=== PATIENT | male | born 1965 | race Caucasian/White ===

== ENCOUNTER → 2020-05-21 09:00 | Outpatient (BNVA) | payer MEDICARE, MEDICAID, SELFPAY | PROVIDERS: PCP Internal Medicine; Visit Provider Urology | DX: N40.1 Benign prostatic hyperplasia with lower urinary tract symptoms (principal); N13.8 Other obstructive and reflux uropathy; R35.0 Frequency of micturition; R35.1 Nocturia; E29.1 Testicular hypofunction; Z79.899 Other long term (current) drug therapy | CPT/HCPCS: 99213 ==

== ENCOUNTER → 2021-03-17 10:30 | Outpatient (BNVA) | payer OTHER, SELFPAY | PROVIDERS: PCP Internal Medicine; Visit Provider Urology | DX: E29.1 Testicular hypofunction (principal); N40.1 Benign prostatic hyperplasia with lower urinary tract symptoms; N13.8 Other obstructive and reflux uropathy | CPT/HCPCS: 51798; 99212 ==

== ENCOUNTER → 2021-09-16 10:04 | Outpatient (BNVA) | payer OTHER, SELFPAY | PROVIDERS: PCP Internal Medicine; Visit Provider Urology | DX: E29.1 Testicular hypofunction (principal); N40.1 Benign prostatic hyperplasia with lower urinary tract symptoms; N13.8 Other obstructive and reflux uropathy | CPT/HCPCS: 51798; 99212 ==

== ENCOUNTER → 2022-03-16 08:22 | Outpatient (BNVA) | payer OTHER, SELFPAY | PROVIDERS: PCP Internal Medicine; Visit Provider Urology | DX: E29.1 Testicular hypofunction (principal); N40.1 Benign prostatic hyperplasia with lower urinary tract symptoms; N13.8 Other obstructive and reflux uropathy | CPT/HCPCS: 99212 ==

== ENCOUNTER → 2022-09-04 14:44 | Outpatient (BNVA) | payer OTHER, SELFPAY | PROVIDERS: PCP Internal Medicine; Visit Provider Surgery | DX: L72.0 Epidermal cyst (principal) | CPT/HCPCS: 99202 ==

== ENCOUNTER → 2022-09-21 08:39 | Outpatient (BNVA) | payer OTHER, SELFPAY | PROVIDERS: PCP Internal Medicine; Referring Provider Internal Medicine; Visit Provider Surgery | CPT/HCPCS: 11403 ==

== ENCOUNTER 2023-03-16 08:27 | Outpatient (AMB) | payer OTHER, SELFPAY ==
--- NOTE | 2023-03-16 08:32 | MHC.OFFVIS ---
Intake Intake Visit Reasons: 1Y PSA(set) Intake Note: Patient is present for Follow Up PSA/PVR Urology Med: Solifenacin, Tamsulosin Antibiotic Allergy: None Blood Thinner: None Pharmacy: [facility] PVR: 0ML Allergies haloperidol [Haldol] Allergy (Unknown, Verified 03/16/23 08:32) n/a tricyclides Allergy (Unknown, Uncoded 03/16/23 08:32) na Medication List - Last Reconciled 03/16/23 by Srinivasa Reyes MD cholecalciferol (vitamin D3) 125 mcg PO DAILY coenzyme Q10 0 mg PO cyanocobalamin (vitamin B-12) 1,000 mcg PO DAILY lisinopril 20 mg PO DAILY metformin 500 mg PO DAILY metformin 1,000 mg PO BID paliperidone ER 9 mg PO BEDTIME solifenacin 10 mg PO DAILY solifenacin (Vesicare) 10 mg PO DAILY 90 days tamsulosin (Flomax) 0.4 mg PO DAILY 90 days HPI HPI Comments History of Present Illness Details Hiram is a pleasant male. He is seen for the following urologic conditions - lower urinary tract symptoms - hypogonadism Followed through [facility]. Continues with testosterone from functional medicine Nocturia 1-2 otherwise happy Reasonable urge control. Suggested to reduce coffee 12 month follow-up Lower urinary tract symptoms Primary symptoms were urgency and nocturia Good response to combination Flomax and VESIcare 5 mg Continues to be effective PSA - 04/01 0.8, 09/03 0.9. 02/01 0.7 Hypogonadism Responded to weight loss Previous prescription for topical testosterone Testim Followed by Endocrinology [facility] Medical History Elevated blood pressure reading Epidermal cyst HTN (hypertension) Incontinence Obesity Thought disorder Social History Alcohol intake: never Patient Tobacco Use Status: Never used Tobacco Review of Systems Const Denies chills and Denies fever(s) Card Reports no additional complaints and Denies syncope Resp Denies cough GI Denies abdominal pain and Denies heartburn Reports as per HPI and Denies change in libido Neuro Denies syncope Psych Denies change in libido Endo Denies change in libido Physical Exam Const General: cooperative, healthy appearing, comfortable and no acute distress Orientation/consciousness: patient oriented x3 HEENT Face and sinus: Yes normal facial exam Mouth: moist mucous membranes Neck Neck: Yes normal visual inspection, Yes full ROM and Yes trachea midline Chest Chest palpation & inspection: normal inspection of the chest Resp Effort & Inspection: normal respiratory effort, able to speak in complete sentences and no respiratory distress GI Inspection: Yes normal to inspection Back/Spine/Pelvis Cervical Spine: normal cervical lordosis Thoracic/Lumbar Spine: thoracic and lumbar spine normal to inspection Skin General skin exam: no rashes or lesions noted Neuro General: patient oriented x3, gait normal, tone normal and moves all extremities Extrem General: Yes normal to inspection and Yes capillary refill normal Office Procedures Post Void Residual Post Residual Void Post Void Residual (PVR): 0 09372-[id number] Void Residual by ultrasound Results AMB Urinalysis, Automated UA Leukoctes 0 Anna/uL Last Edit by KOTA Dhillon on 03/16/23 08:39 UA Nitrite Negative Last Edit by CLARISSA Dhillon on 03/16/23 08:39 UA Urobilinogen 0.2 mg/dL Last Edit by KOTA Dhillon on 03/16/23 08:39 UA Protein 15 mg/dL Last Edit by Ebony Mar [facility] on 03/16/23 08:39 UA pH 5.5 Last Edit by KOTA Dhillon on 03/16/23 08:39 UA Blood 10 Galdino/uL Last Edit by CLARISSA Dhillon on 03/16/23 08:39 UA Specific Krebs 1.030 Last Edit by KOTA Dhillon on 03/16/23 08:39 UA Ketone Positive Last Edit by Ebony Mar Murtaza on 03/16/23 08:39 UA Bilirubin 0 mg/dL Last Edit by KOTA Dhillon on 03/16/23 08:39 UA Glucose 1000 mg/dL Last Edit by KOTA Dhillon on 03/16/23 08:39 Results Reviewed Results Reviewed: Laboratory Last Values Urine pH (Auto) 5.5 03/16/23 08:33 Specific Krebs (Auto) 1.030 03/16/23 08:33 Urine Protein (Auto) 15 mg/dL 03/16/23 08:33 Glucose (UA)(Auto) 1000 mg/dL 03/16/23 08:33 Urine Ketones (Auto) Positive 03/16/23 08:33 Urine Blood (Auto) 10 Galdino/uL 03/16/23 08:33 Urine Nitrite (Auto) Negative 03/16/23 08:33 Urine Bilirubin (Auto) 0 mg/dL 03/16/23 08:33 Urine Urobilinogen (Auto) 0.2 mg/dL 03/16/23 08:33 Leukocyte Esterase (Auto) 0 Anna/uL 03/16/23 08:33 Assessment & Plan Assessment & Plan (1) Hypogonadism male: Code(s): E29.1 - Testicular hypofunction (2) BPH with obstruction/lower urinary tract symptoms: Code(s): N40.1 - Benign prostatic hyperplasia with lower urinary tract symptoms; N13.8 - Other obstructive and reflux uropathy Plan Twelve month follow-up Orders: Orders AMB Urinalysis Automated Today Z13.9 - Encounter for screening, unspecified AMB Post Void Residual by ultrasound Today N13.8 - Other obstructive and reflux uropathy, N40.1 - Benign prostatic hyperplasia with lower urinary tract symptoms Medications: Refilled solifenacin (Vesicare) 10 mg PO DAILY 90 tabs 3RF 90 days E29.1 - Testicular hypofunction tamsulosin (Flomax) 0.4 mg PO DAILY 90 caps 3RF 90 days E29.1 - Testicular hypofunction Patient Instructions: Imaging studies, laboratory and physical exam results were discussed and reviewed in detail. No major barriers to patient understanding were identified. An opportunity to ask questions regarding the treatment plan was provided. All questions were answered. The patient expressed understanding and agreement with the above treatment plan. The patient is aware they should contact our office by phone for worsening of their current condition or the appearance of new urologic symptoms. Compliance is encouraged with any medications and followup testing that is ordered. It is a privilege to participate in the urologic care of your patient. If you have any questions or concerns regarding treatment for the above conditions, or other urologic issues, please do not hesitate to contact me. The office telephone contact is [phone]. This note is constructed using voice recognition software. While every effort has been made to ensure accuracy litigation manager errors may have been included. Yours sincerely, Dr Srinivasa Reyes MD, [facility] - Urology Providers of Expert, Compassionate Care for the Genitourinary System Coding Level of Care Code Est Pt Level 4 (59430) Diagnoses Hypogonadism male E29.1 BPH with obstruction/lower urinary tract symptoms N40.1; N13.8 CPT Codes Post Residual Void - PVR CPT Code: 44395-Qsmv Void Residual by ultrasound ([id number])
== END 2023-03-16 09:01 | disposition home or self-care (01) ==
PROVIDERS: Visit Provider Urology
DX: E29.1 Testicular hypofunction (principal); N40.1 Benign prostatic hyperplasia with lower urinary tract symptoms; N13.8 Other obstructive and reflux uropathy
CPT/HCPCS: 99214

== ENCOUNTER → 2023-03-16 08:27 | Outpatient (BNVA) | payer OTHER, SELFPAY | PROVIDERS: Visit Provider Urology | DX: N40.1 Benign prostatic hyperplasia with lower urinary tract symptoms (principal); N13.8 Other obstructive and reflux uropathy; E29.1 Testicular hypofunction | CPT/HCPCS: 51798; 99212 ==

== ENCOUNTER 2023-07-02 08:07 | Outpatient (AMB) | payer OTHER, SELFPAY ==
[2023-07-02 08:19] VITALS: BP 132/90; PULSE 70; TEMP 36.7; O2SAT 97; BMI 43.0
--- NOTE | 2023-07-02 08:19 | AM.OFFWIN_ITS ---
Intake Vital Signs 3 07/02/23 08:19 Height 6 ft Weight 317 lb BMI 43.0 BP 132/90 H Blood Pressure Location Rt brachial Position Sitting Pulse 70 Pulse Source Pulse Oximeter Temp 98.0 F Temp Source Temporal Artery Scan Pulse Oximetry (%) 97 Intake Visit Reasons: EP hernia Intake Note: pt is here for c/o suspect abd hernia Patient Tobacco Use Status: Never used Tobacco Allergies haloperidol [Haldol] Allergy (Unknown, Verified 07/02/23 09:17) n/a tricyclides Allergy (Unknown, Uncoded 07/02/23 09:17) na Do you need a note to return to daycare/school/sports/work: Yes HPI EP hernia 2 HPI0 Details 58-year-old male patient presents today with a 3 month history question abdominal hernia his right lower abdomen. He reports this has been present for about 3 months, and he noticed it after he started going to the gym. Reports it is not usually painful however he does feel pressure with lifting and straining/bearing down. Denies any nausea, vomiting, diarrhea or abdominal pain. Denies fever. [facility] Medical History Epidermal cyst Thought disorder Obesity Incontinence HTN (hypertension) Elevated blood pressure reading Social History Alcohol intake: never Patient Tobacco Use Status: Never used Tobacco Review of Systems Const All systems reviewed & are unremarkable except as noted in HPI and below Physical Exam Vital Signs: Last Vital Signs Temp 98.0 F 07/02/23 08:19 Pulse 70 07/02/23 08:19 BP 132/90 H 07/02/23 08:19 Pulse Ox 97 07/02/23 08:19 BMI result Body Mass Index 43.0 Const General: cooperative and no acute distress Nutritional Appearance: obese Resp Effort & Inspection: normal respiratory effort and able to speak in complete sentences Auscultation: clear to auscultation bilaterally Cardio Jugular venous distension: no JVD Palpation: normal PMI Rate: regular rate Rhythm: regular rhythm GI Inspection: Yes obesity Palpation (GI): Hernia present umbilical (left) Auscultation: normal bowel sounds Abdomen image: 2 1. hernia Neuro General: gait normal Extrem General: Yes capillary refill normal and Yes no clubbing, cyanosis or edema Psych Appearance: grossly normal Mental Status: mental status grossly normal Speech and movement: Normal speech and movement present Affect: Other affect and mood findings present (flat affect, poor eye contact) Assessment & Plan Assessment & Plan (1) Hernia, umbilical: Code(s): K42.9 - Umbilical hernia without obstruction or gangrene Qualifiers: Obstruction and gangrene presence: without obstruction or gangrene Qualified Code(s): K42.9 - Umbilical hernia without obstruction or gangrene Plan: Will refer to general surgery at [facility] per patient request and per recommendation from Dr. Cabello. Advised to return to clinic or PCP if symptoms worsen or new pain/fever develop. He verbalizes understanding and agrees to plan. Orders: Referrals 2 General Surgery Referral K42.9 - Umbilical hernia without obstruction or gangrene Coding Level of Care Code Est Pt Level 3 (83061) Diagnoses Umbilical hernia without obstruction and without gangrene K42.9 Obstruction and gangrene presence: without obstruction or gangrene
== END 2023-07-02 09:05 | disposition home or self-care (01) ==
PROVIDERS: PCP Internal Medicine; Visit Provider Nurse Practitioner Family
DX: K42.9 Umbilical hernia without obstruction or gangrene (principal)
CPT/HCPCS: 99213

== ENCOUNTER 2023-07-02 09:15 | Outpatient (AMB) | payer OTHER, SELFPAY ==
[2023-07-02 09:16] VITALS: BP 162/90; PULSE 106; O2SAT 97; BMI 43.0
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
== END 2023-07-02 09:38 | disposition home or self-care (01) ==
LOC: HO.HMGWI 09:15
PROVIDERS: PCP Internal Medicine
DX: M54.2 Cervicalgia (principal)
CPT/HCPCS: 99214

== ENCOUNTER 2023-07-02 10:07 | Emergency (ER) | payer OTHER, SELFPAY ==
[2023-07-02] VITALS (10 sets, daily range): BP systolic 133–179; BP diastolic 78–110; PULSE 97–125; RESP 14–18; TEMP 36.8–37.1; O2SAT 94–98; BMI 42.7
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
--- NOTE | 2023-07-02 11:27 | PC.NURSE ---
pt to CT at this time.
--- NOTE | 2023-07-02 11:40 | PC.NURSE ---
tech bedside performing orthos/obtaining lab work.
--- NOTE | 2023-07-02 11:43 | ECG_ITS ---
Test Reason : TACHYCARDIA Blood Pressure : / mmHG Vent. Rate : 105 BPM Atrial Rate : 105 BPM P-R Int : 230 ms QRS Dur : 108 ms QT Int : 340 ms P-R-T Axes : 032 -50 003 degrees QTc Int : 449 ms Sinus tachycardia with 1st degree A-V block Low voltage QRS Incomplete right bundle branch block Left anterior fascicular block Abnormal ECG No previous ECGs available Referred By: Jennifer Cyr Electronically Signed By:BAHMAN ANDERSON MD
[2023-07-02 11:49] LABS: MANUAL DIFF FLAG NO
[2023-07-02 11:53] LABS: Basophils Percent Auto 0.2 % (0-2); Eosinophils Percent Auto 0.1 % (0-4); Hematocrit 44.2 % (42.0-52.0); Hemoglobin 14.7 g/dl (14.0-18.0); Imm Gran Abs Auto 0.06 X10*3/uL (0.00-0.03); Imm Gran Pct Auto 0.5 % (0.0-0.4); Lymphocytes Absolute Auto 0.8 X10*3/uL (1.2-4.9); Lymphocytes Percent Auto 6.7 % (20-40); Mean Corpuscular HGB Conc 33.3 g/dl (31.0-36.0); Mean Corpuscular Hemoglobin 29.8 pg (27.0-33.0); Mean Corpuscular Volume 89.5 fL (80.0-98.0); Mean Platelet Volume 9.8 fL (9.4-12.4); Monocytes Absolute Auto 0.4 X10*3/uL (0.1-1.2); Monocytes Percent Auto 3.1 % (2-11); Neutrophils Absolute Auto 10.6 x10*3/uL (2.0-8.3); Neutrophils Percent Auto 89.4 % (45-73); Platelet Count 255 X10*3/uL (160-400); Red Blood Count 4.94 X10*6/uL (4.60-5.80); Red Cell Distribution Width 13.8 % (11.0-16.0); White Blood Count 11.9 X10*3/uL (4.8-10.8)
[2023-07-02 12:03] LABS: Prothrombin Time 11.8 SEC (11.1-13.3)
[2023-07-02 12:07] LABS: Alanine Aminotransferase 19 U/L (0-40); Alkaline Phosphatase 96 U/L (39-117); Anion Gap 11 (12-20); Aspartate Amino Transferase 16 U/L (5-37); Bilirubin Direct 0.2 mg/dL (0.0-0.5); Bilirubin Total 0.3 mg/dL (0.0-1.0); Blood Urea Nitrogen 10 mg/dL (9-16); Calcium 9.6 mg/dL (8.4-10.2); Carbon Dioxide 28 mmol/L (22-29); Chloride 105 mmol/L (96-108); Estimated Glomerular Filt Rate > 60; Glucose Random 207 mg/dL (60-115); Potassium 4.2 mmol/L (3.3-5.1); Sodium 140 mmol/L (135-145); Total Protein 7.2 g/dL (6.5-8.0)
[2023-07-02 12:13] LABS: Troponin-I High Sensitivity < 2.7 ng/L (<3.5-35.0)
[2023-07-02] MEDS: 0.9 % Sodium Chloride 1,000 ML 999 ML IV (14:03)
--- NOTE | 2023-07-02 14:07 | PC.NURSE ---
20gIV placed in left AC w/o difficulty - IV fluids administered per provider order. repeat trop/urine obtained/sent to lab. respirations remain even and unlabored. call echeverria placed within reach.
[2023-07-02 14:11] LABS: Appearance Urine Clear; Color Urine Yellow; Glucose Urine UA 250 mg/dL (Negative); Leukocyte Esterase Urine Negative (Negative); Nitrite Urine Negative (Negative); PH 7.5 (5.0-9.0); Specific Gravity - Urine 1.015 (1.005-1.025); Urine Blood Negative (Negative); Urine Ketones Negative (Negative); Urine Protein Negative (Neg-Trace)
[2023-07-02 14:34] LABS: Troponin-I High Sensitivity < 2.7 ng/L (<3.5-35.0)
--- NOTE | 2023-07-02 14:47 | PC.NURSE ---
vss and up to date at this time. pt verbalizing no change in neck pain level at this time. pt awaiting IV fluids to be administered so orthos can be performed. resting comfortably in no apparent distress. call echeverria placed within reach.
== END 2023-07-02 16:38 | disposition home or self-care (01) ==
PROVIDERS: Physician Assistant; Emergency Provider Emergency Medicine; PCP Internal Medicine
DX: S09.90XA Unspecified injury of head, initial encounter (principal); S00.83XA Contusion of other part of head, initial encounter; V47.0XXA Car driver injured in collision with fixed or stationary object in nontraffic accident, initial encounter; M54.2 Cervicalgia; I10 Essential (primary) hypertension; R00.0 Tachycardia, unspecified; I44.0 Atrioventricular block, first degree; K43.9 Ventral hernia without obstruction or gangrene; D72.829 Elevated white blood cell count, unspecified; Y93.89 Activity, other specified; Y92.481 Parking lot as the place of occurrence of the external cause; Y99.9 Unspecified external cause status; Z79.899 Other long term (current) drug therapy
CPT/HCPCS: 36415; 70450; 72125; 80048; 80076; 81003; 83735; 84484; 85025; 85610; 93005; 96360; 99284; 99285

== ENCOUNTER 2024-02-25 15:04 | Outpatient (AMB) | payer OTHER, SELFPAY ==
--- NOTE | 2024-02-25 15:36 | A.OFFVIS_ITS ---
Vital Signs 02/25/24 15:42 Weight 336 lb Intake Visit Reasons: abdominal hernia Intake Note: This patient presents for an assessment for an abdominal hernia. Patient c/o; reports no complaints. Classified Ad Taker Required: No Accompanied by: Self / Same As Patient Allergies haloperidol [Haldol] Allergy (Unknown, Verified 02/25/24 15:42) n/a tricyclides Allergy (Unknown, Uncoded 02/25/24 15:42) na Medication List - Last Reconciled 02/25/24 by Eduardo Cheng MD acetaminophen (Tylenol Extra Strength) 500 mg PO Q6H PRN cholecalciferol (vitamin D3) 125 mcg PO DAILY coenzyme Q10 0 mg PO cyanocobalamin (vitamin B-12) 1,000 mcg PO DAILY lidocaine 5% (Lidoderm) 1 patch topical DAILY PRN MDD remove after 12 hours lisinopril 20 mg PO DAILY metformin 500 mg PO DAILY naproxen 500 mg PO BID PRN 10 days paliperidone ER 9 mg PO BEDTIME solifenacin (Vesicare) 10 mg PO DAILY 90 days tamsulosin (Flomax) 0.4 mg PO DAILY 90 days HPI HPI abdominal hernia: Details: 58-year-old male referred for a paraumbilical hernia. He said he is noticed this mass on his abdominal wall for more than 5 years. He says that this does not cause any pain. He denies any GI complaints. He does not think that this is reducible. He has a history of morbid obesity, schizophrenia, BPH, diabetes and hypertension. He does not really offer much with regards to details of his history. [facility] Medical History (Updated 02/25/24 @ 15:50 by Eduardo Cheng MD) Abdominal wall hernia Epidermal cyst Thought disorder Obesity Incontinence HTN (hypertension) Elevated blood pressure reading Social History Alcohol intake: never Patient Tobacco Use Status: Never used Tobacco Review of Systems Const Denies chills and Denies fever(s) Card Denies chest pain, Denies dyspnea and Denies dyspnea on exertion Resp Denies cough, Denies dyspnea and Denies dyspnea on exertion GI Denies hematochezia and Denies change in bowel habits Denies hematuria and Denies difficulty urinating Musc Denies back pain and Denies limited range of motion Neuro Denies focal weakness and Denies convulsions Psych Denies depression and Denies mood swings Physical Exam Const Other: Morbidly obese General: comfortable and no acute distress Orientation/consciousness: patient oriented x3 Neck Neck: Yes no lymphadenopathy Resp Auscultation: clear to auscultation bilaterally Cardio Rhythm: regular rhythm GI Other: Large hernia on the periumbilical area a little to the left and inferiorly, measuring about 12 cm in diameter, not reducible, not tender Palpation (GI): Soft to palpation, nontender and no guarding Neuro General: patient oriented x3 Assessment & Plan Assessment & Plan (1) Abdominal wall hernia: Code(s): K43.9 - Ventral hernia without obstruction or gangrene Category: Medical Plan: He has a large abdominal were hernia as described above he denies symptoms at this time. He says he does not have any pain or discomfort. I am going to order for a CAT scan for this to define this hernia. I will review the CT scan and seemed the office to discuss options with regards to possible repair. He seems to understand the plan well. Coding Level of Care Code Est Pt Level 3 (02465) Diagnoses Abdominal wall hernia K43.9
== END 2024-02-25 15:53 | disposition home or self-care (01) ==
PROVIDERS: PCP Internal Medicine; Referring Provider Internal Medicine; Visit Provider Surgery
DX: K43.9 Ventral hernia without obstruction or gangrene (principal)
CPT/HCPCS: 99213

== ENCOUNTER → 2024-02-25 15:04 | Outpatient (BNVA) | payer OTHER, SELFPAY | PROVIDERS: PCP Internal Medicine; Referring Provider Internal Medicine; Visit Provider Surgery | DX: K43.9 Ventral hernia without obstruction or gangrene (principal) | CPT/HCPCS: 99212 ==

== ENCOUNTER 2024-04-11 12:44 | Outpatient (AMB) | payer OTHER, SELFPAY ==
--- NOTE | 2024-04-11 13:17 | MHC.OFFVIS ---
Intake Visit Reasons: 1y follow up Intake Note: Patient is Present for 1 year PVR Follow up Urology Med: Tamsulosin, Vesicare Antibiotic Allergy: None Blood Thinner:None Last PVR: 0ml Todays PVR:0ML Final Assembly And Packing Supervisor Required: No Accompanied by: Self / Same As Patient Allergies haloperidol [Haldol] Allergy (Unknown, Verified 04/11/24 13:21) n/a tricyclides Allergy (Unknown, Uncoded 04/11/24 13:21) na Medication List - Last Reconciled 04/11/24 by Srinivasa Reyes MD acetaminophen (Tylenol Extra Strength) 500 mg PO Q6H PRN cholecalciferol (vitamin D3) 125 mcg PO DAILY coenzyme Q10 0 mg PO cyanocobalamin (vitamin B-12) 1,000 mcg PO DAILY lidocaine 5% (Lidoderm) 1 patch topical DAILY PRN MDD remove after 12 hours lisinopril 20 mg PO DAILY metformin 500 mg PO DAILY metformin 1,000 mg PO DAILY naproxen 500 mg PO BID PRN 10 days paliperidone ER 9 mg PO BEDTIME solifenacin (Vesicare) 10 mg PO DAILY 90 days tamsulosin (Flomax) 0.4 mg PO DAILY 90 days HPI Comments Details: Hiram is a pleasant male. He is seen for the following urologic conditions - lower urinary tract symptoms - hypogonadism Followed through [facility]. Continue with combination Traore Latif and Flomax Continues with testosterone from functional medicine Nocturia 1-2 otherwise happy Reasonable urge control. Medication refill provided Six-month follow-up nurse-practitioner PVR Lower urinary tract symptoms Primary symptoms were urgency and nocturia Good response to combination Flomax and VESIcare 5 mg Continues to be effective PSA - 04/01 0.8, 09/03 0.9. 02/01 0.7 Hypogonadism Responded to weight loss Previous prescription for topical testosterone Testim Followed by Endocrinology [facility] Medical History Abdominal wall hernia Epidermal cyst Thought disorder Obesity Incontinence HTN (hypertension) Elevated blood pressure reading Social History Alcohol intake: never Patient Tobacco Use Status: Never used Tobacco Review of Systems Const Denies chills and Denies fever(s) Card Reports no additional complaints and Denies syncope Resp Denies cough GI Denies abdominal pain and Denies heartburn Reports as per HPI and Denies change in libido Neuro Denies syncope Psych Denies change in libido Endo Denies change in libido Physical Exam Const General: cooperative, healthy appearing, comfortable and no acute distress Orientation/consciousness: patient oriented x3 HEENT Face and sinus: Yes normal facial exam Mouth: moist mucous membranes Neck Neck: Yes normal visual inspection, Yes full ROM and Yes trachea midline Chest Chest palpation & inspection: normal inspection of the chest Resp Effort & Inspection: normal respiratory effort, able to speak in complete sentences and no respiratory distress GI Inspection: Yes normal to inspection Back/Spine/Pelvis Cervical Spine: normal cervical lordosis Thoracic/Lumbar Spine: thoracic and lumbar spine normal to inspection Skin General skin exam: no rashes or lesions noted Neuro General: patient oriented x3, gait normal, tone normal and moves all extremities Extrem General: Yes normal to inspection and Yes capillary refill normal Office Procedures Post Void Residual Post Residual Void Post Void Residual (PVR): 0 [id number]-[id number] Void Residual by ultrasound Assessment & Plan Assessment & Plan (1) Hypogonadism male: Code(s): E29.1 - Testicular hypofunction Category: Medical (2) BPH with obstruction/lower urinary tract symptoms: Code(s): N40.1 - Benign prostatic hyperplasia with lower urinary tract symptoms; N13.8 - Other obstructive and reflux uropathy Category: Medical Plan Continue medication Orders: Orders AMB Post Void Residual by ultrasound Today N13.8 - Other obstructive and reflux uropathy, N40.1 - Benign prostatic hyperplasia with lower urinary tract symptoms Medications: Refilled tamsulosin (Flomax) 0.4 mg PO DAILY 90 days 90 caps 3RF E29.1 - Testicular hypofunction solifenacin (Vesicare) 10 mg PO DAILY 90 days 90 tabs 3RF E29.1 - Testicular hypofunction Patient Instructions: Imaging studies, laboratory and physical exam results were discussed and reviewed in detail. No major barriers to patient understanding were identified. An opportunity to ask questions regarding the treatment plan was provided. All questions were answered. The patient expressed understanding and agreement with the above treatment plan. The patient is aware they should contact our office by phone for worsening of their current condition or the appearance of new urologic symptoms. Compliance is encouraged with any medications and followup testing that is ordered. It is a privilege to participate in the urologic care of your patient. If you have any questions or concerns regarding treatment for the above conditions, or other urologic issues, please do not hesitate to contact me. The office telephone contact is [phone]. This note is constructed using voice recognition software. While every effort has been made to ensure accuracy medical assembly errors may have been included. Yours sincerely, Dr Srinivasa Reyes MD, [facility] - Urology Providers of Expert, Compassionate Care for the Genitourinary System Coding Level of Care Code Est Pt Level 4 (76537) Diagnoses Hypogonadism male E29.1 BPH with obstruction/lower urinary tract symptoms N40.1; N13.8 CPT Codes Post Residual Void - PVR CPT Code: 03758-[id number] Void Residual by ultrasound ([id number])
== END 2024-04-11 13:38 | disposition home or self-care (01) ==
PROVIDERS: PCP Internal Medicine; Visit Provider Urology
DX: E29.1 Testicular hypofunction (principal); N40.1 Benign prostatic hyperplasia with lower urinary tract symptoms; N13.8 Other obstructive and reflux uropathy
CPT/HCPCS: 99214

== ENCOUNTER → 2024-04-11 12:44 | Outpatient (BNVA) | payer OTHER, SELFPAY | PROVIDERS: PCP Internal Medicine; Visit Provider Urology | DX: E29.1 Testicular hypofunction (principal); N40.1 Benign prostatic hyperplasia with lower urinary tract symptoms; N13.8 Other obstructive and reflux uropathy; Z79.899 Other long term (current) drug therapy | CPT/HCPCS: 51798; 99212 ==

== ENCOUNTER 2024-08-26 09:46 | Outpatient (AMB) | payer OTHER, SELFPAY ==
--- NOTE | 2024-08-26 09:51 | MHC.PC.OV ---
Vital Signs 08/26/24 09:57 Height 6 ft 1 in Weight 324 lb BMI 42.7 BP 162/100 H Blood Pressure Location Rt brachial Pulse 88 Pulse Source Pulse Oximeter Pulse Oximetry (%) 99 Intake Visit Reasons: physical Intake Note: just for a physical today Allergies haloperidol [Haldol] Allergy (Unknown, Verified 08/26/24 09:56) n/a tricyclides Allergy (Unknown, Uncoded 04/11/24 13:21) na HPI physical HPI Details 59-year-old male presents to the office for an annual physical. In addition he has several medical conditions that he would like to discuss. Patient has history of diabetes and is taking metformin. Does not recall when his last blood work or A1c was done. Lives alone and does not have a healthy diet. Does not check his blood sugars at home. Patient drives a car but has to take medications under supervision. He drives at night with no difficulty. Patient has history of schizoaffective disorder. He sees a psychiatrist at [facility] who has him currently on Invega. Reports no auditory or visual hallucinations. Patient also has bladder issues for which he sees a urologist. Compliant with the medications. [facility] Medical History (Updated 08/26/24 @ 10:18 by Wojciech Cabello MD) Morbid obesity with BMI of 40.0-44.9, adult Diabetes mellitus Abdominal wall hernia Epidermal cyst Thought disorder Incontinence HTN (hypertension) Elevated blood pressure reading Social History Alcohol intake: never Patient Tobacco Use Status: Never used Tobacco Physical exam (Primary Care) Vital Signs: Last Vital Signs Pulse 88 08/26/24 09:57 BP 162/100 H 08/26/24 09:57 Pulse Ox 99 08/26/24 09:57 Care Plan Goal for BP management: Blood pressure is elevated. Encouraged to be compliant with medications. BMI result Body Mass Index 0.3 BMI Assessment/Plan discussion: High (One pound per week weight loss suggested) BMI High, discussed plan: lifestyle, weight reduction, dietary and physical activity Tobacco/Smoking Status: Tobacco use Status Patient Tobacco Use Status Never used Tobacco 08/26/24 09:53 Const General: cooperative and healthy appearing Nutritional Appearance: well nourished Orientation/consciousness: patient oriented x3 Limitations: no limitations HENMT Head: Yes normal to inspection Eyes General: appearance normal, both eyes and all related structures Neck Neck: Yes normal visual inspection Chest Chest palpation & inspection: normal palpation of entire chest wall Resp Effort & Inspection: normal respiratory effort Neuro General: patient oriented x3 Coding Level of Care Code New Pt Level 4 (49169) New Pt Prev Care 40-64y(88144) Diagnoses BPH with obstruction/lower urinary tract symptoms N40.1; N13.8 Thought disorder R41.89 HTN (hypertension) I10 Diabetes mellitus E11.9 Morbid obesity with BMI of 40.0-44.9, adult E66.01; Z68.41 Annual physical exam Z00.00 Assessment & Plan Assessment & Plan (1) BPH with obstruction/lower urinary tract symptoms: Code(s): N40.1 - Benign prostatic hyperplasia with lower urinary tract symptoms; N13.8 - Other obstructive and reflux uropathy Category: Medical Plan: Condition is stable. Continue current medications. PSA has been ordered. (2) Thought disorder: Code(s): R41.89 - Other symptoms and signs involving cognitive functions and awareness Category: Medical Plan: Patient has a schizoaffective disorder under moderate control. Denies any recent hallucinations. Continue Invega at same dosage. (3) HTN (hypertension): Code(s): I10 - Essential (primary) hypertension Category: Medical Plan: BP is elevated. Not clear if he was compliant with medications. (4) Diabetes mellitus: Code(s): E11.9 - Type 2 diabetes mellitus without complications Category: Medical Plan: Continue Metformin. A1c ordered. Encouraged patient to get blood work done. (5) Morbid obesity with BMI of 40.0-44.9, adult: Code(s): E66.01 - Morbid (severe) obesity due to excess calories; Z68.41 - Body mass index [BMI] 40.0-44.9, adult Category: Medical Plan: Counselling on the importance of diet and exercise done. (6) Annual physical exam: Code(s): Z00.00 - Encounter for general adult medical examination without abnormal findings Plan: Will check his last screening colonoscopy. Orders: Orders Hemoglobin A1c Today E11.9 - Type 2 diabetes mellitus without complications Basic Metabolic Panel Today E11.9 - Type 2 diabetes mellitus without complications Complete Blood Count no Diff Today E11.9 - Type 2 diabetes mellitus without complications Thyroid Stimulating Hormone Today E11.9 - Type 2 diabetes mellitus without complications UA and rflx microscopic Today E11.9 - Type 2 diabetes mellitus without complications Lipid Panel Today E11.9 - Type 2 diabetes mellitus without complications Liver Panel Today E11.9 - Type 2 diabetes mellitus without complications Prostate Specific Antigen Scr Today E11.9 - Type 2 diabetes mellitus without complications Microalbumin, Random (w Creat) Today E11.9 - Type 2 diabetes mellitus without complications
[2024-08-26 09:57] VITALS: BP 162/100; PULSE 88; O2SAT 99; BMI 42.7
== END 2024-08-26 11:34 | disposition home or self-care (01) ==
LOC: HO.HMCSH 09:46
PROVIDERS: PCP Internal Medicine; Visit Provider Internal Medicine
DX: Z00.00 Encounter for general adult medical examination without abnormal findings (principal); E11.9 Type 2 diabetes mellitus without complications; E66.01 Morbid (severe) obesity due to excess calories; Z68.41 Body mass index [BMI] 40.0-44.9, adult; N40.1 Benign prostatic hyperplasia with lower urinary tract symptoms; N13.8 Other obstructive and reflux uropathy; R41.89 Other symptoms and signs involving cognitive functions and awareness; I10 Essential (primary) hypertension

== ENCOUNTER → 2024-08-26 09:46 | Outpatient (BNVA) | payer OTHER, SELFPAY | PROVIDERS: PCP Internal Medicine; Visit Provider Internal Medicine | DX: Z00.00 Encounter for general adult medical examination without abnormal findings (principal); E11.9 Type 2 diabetes mellitus without complications; N40.1 Benign prostatic hyperplasia with lower urinary tract symptoms; N13.8 Other obstructive and reflux uropathy; R41.89 Other symptoms and signs involving cognitive functions and awareness; I10 Essential (primary) hypertension; E66.01 Morbid (severe) obesity due to excess calories; Z68.41 Body mass index [BMI] 40.0-44.9, adult; F25.9 Schizoaffective disorder, unspecified | CPT/HCPCS: 99202; 99386 ==

== ENCOUNTER 2024-10-30 07:32 | Outpatient (AMB) | payer OTHER, SELFPAY ==
--- OUTSIDE RECORDS SUMMARY | 2024-10-30 07:34 | XMS_ITS | Clinical Summary ---
Author Organization [facility] Address [address] [place] [id number] Care Team Providers Care Drywall Professional Name Role Phone Bryan Sanabria MD Primary Care Provider Unavailab le Allergies Active Allergy Reactions Criticality Noted Date Comments Haloperidol Other (See Comments) 04/09/2018 FATIGUE Medications Medication Sig Dispensed Refills Start Date End Date Status solifenacin (VESICARE) 10 MG tablet Take 1 tablet (10 mg total) by mouth daily. 0 Active tamsulosin (FLOMAX) 0.4 MG CAPS Take 1 capsule (0.4 mg total) by mouth daily. 0 Active Coenzyme Q10 (CoQ-10) 100 MG CAPS Take by mouth. 0 Active metFORMIN (GLUCOPHAGE) tablet 1000 mg Take 1 tablet (1,000 mg total) by mouth 2 (two) times a day with meals. 0 Active paliperidone (INVEGA) 9 MG 24 hr tablet Take 1 tablet (9 mg total) by mouth every morning. 0 Active lisinopril (PRINIVIL,ZESTRIL) tablet 20 mg Take 1 tablet (20 mg total) by mouth daily. 0 Active vitamin B-12 (CYANOCOBALAMIN) tablet 1000 mcg Take 1 tablet (1,000 mcg total) by mouth daily. 0 Active vitamin D3 (CHOLECALCIFEROL) 125 MCG (5000 UT) capsule Take 1 capsule (125 mcg total) by mouth daily. 0 Active Active Problems No known active problems Social History Tobacco Use Types Packs/Day Years Used Date Smoking Tobacco: Never Assessed Sex and Gender Information Value Date Recorded Sex Assigned at Not on file Gender Identity Not on file Sexual Orientation Not on file Job Start Date Occupation Industry Not on file Not on file Not on file Last Filed Vital Signs Vital Sign Reading Time Taken Comments Blood Pressure 157/70 10/18/2022 11:34 AM EST Pulse 78 10/18/2022 11:34 AM EST Temperature 36.9 ??C (98.5 ??F) 10/18/2022 11:[address] Respiratory Rate - - Oxygen Saturation 99% 10/18/2022 11:34 AM EST Inhaled Oxygen Concentration - - Weight 147.9 kg (326 lb) 10/18/2022 11:34 AM EST Height 185.4 cm (6' 1 ) 10/18/2022 11:34 AM EST Body Mass Index 43.01 10/18/2022 11:34 AM EST Plan of Treatment Health Maintenance Due Date Last Done Comments Hepatitis B Vaccines (1 of 3 - 3-dose series) 1965 Hepatitis C Screening 1965 COVID-19 Vaccine (#1) 1965 Depression Screening 1977 Preventative Health Evaluation 1983 Colon Cancer Screening (Colonoscopy) 2010 Shingrix-Zoster Vaccine (1 of 2) 2015 Influenza Vaccine (#1) 2024 2, 05/18/2021, 2020, Additional history exists DTap / Tdap / Td (2 - Td or Tdap) 07/09/2025 07/09/2015 Pneumococcal Vaccine Aged Out No long er eligible based on patient's age to complete this topic RSV Ped < 20 months Aged Out No longe r eligible based on patient's age to complete this topic Care Teams Drywall Professional Relationship Specialty Start Date End Date Bryan Sanabria MD PCP - General Internal Medicine 05/24/22
--- OUTSIDE RECORDS SUMMARY | 2024-10-30 07:34 | XMS_ITS | Encounter Summary ---
Author Organization [facility] Address [address] [place] [address] Care Team Providers Care Assembler Fishing Floats Name Role Phone Bryan Sanabria MD Primary Care Provider Encounter Details Date Type Department Care Team (Late st Contact Info) Description 10/29/2024 Telephone Internal Medicine - [place] [address] [phone] Bryan Sanabria MD [address] [id number] Social History Tobacco Use Types Packs/Day Years Used Date Smoking Tobacco: Never Assessed Sex and Gender Information Value Date Recorded Sex Assigned at Not on file Legal Sex Male 2:13 AM EST Gender Identity Not on file Sexual Orientation Not on file documented as of this encounter Progress Notes * Jennifer Carranza - 10/29/2024 4:25 PM EDT Please resend [facility] to [facility] documented in this encounter Plan of Treatment Upcoming Encounters Date Type Department Care Team (Late st Contact Info) Description 12/22/2024 8:15 AM EDT Office Visit Internal Medicine [facility] [address] [phone] Bryan Sanabria MD [address] [address] documented as of this encounter Visit Diagnoses Not on filedocumented in this encounter Care Teams Assembler Fishing Floats Relationship Specialty Start Date End Date Bryan Sanabria MD PCP - General Internal Medicine 01/14/19 documented as of this encounter
--- OUTSIDE RECORDS SUMMARY | 2024-10-30 07:34 | XMS_ITS | Data Portability ---
Author Organization [employer] Address [address] [place] [phone] Care Team Providers Care Needle Loom Operator Helper Name Role Phone [facility] Referring Provider [phone] Assessment Encounter Date Assessment Date Assessment LastModified by Organization Details LastModified Time 08/30/2022 08/30/2022 57 y.o. c/o a lump on his L scapular region that he first noticed as a tenderness starting last Thurs or Fri. It is approx the size of a quarter and does not seem to have grown in size since onset Area on L scapula with area of firmness and some minimal surrounding redness. No obvious fluctuance Area consistent with sebaceous cyst with possible signs of early infection. Less likely abscess Discussed need for PCP or urgent care follow up for Incision and drainage. We will give 500mg Keflex and prescribe keflex to treat cellulitis [email or web address] Not available 08/30/2022 21:06:26 Plan of Treatment Reminders Order Date Submit Date Provider Last Modified By Organization Details Last Modified Time Details Appointments None recorded. Lab None recorded. Referral None recorded. Procedures None recorded. Surgeries None recorded. Imaging None recorded. Medication Orders cephalexin 500 mg capsule 2022 023 [facility] [place], [address], 3 20:45:13 Keflex 500 mg capsule 2022 023 [email or web address] [facility] [place], [address], 3 21:06:51 Patient TargetsNo targets recorded. Patient InstructionsNo instructions recorded. Reason for Referral None Reported. Medical Equipment None Reported. Medications Name Sig Start Date Stop Date Status Note LastModified by Organization Details LastModified Time metformin 500 mg tablet active Not Available Not Available No t Available lisinopril 20 mg tablet active Not Available Not Available No t Available cyanocobalamin (vit B-12) 1,000 mcg tablet active Not Available Not Available Not Available tamsulosin 0.4 mg capsule active Not Available Not Available N ot Available cephalexin 500 mg capsule Take 1 capsule every 6 hours by oral route for 7 days. active Not Available Not Available No t Available cholecalciferol (vitamin D3) 125 mcg (5,000 unit) capsule active Not Available Not Availabl e Not Available solifenacin 10 mg tablet active Not Available Not Available No t Available testosterone 50 mg/5 gram (1 %) transdermal gel APPLY 4 PACKETS DAILY active Not Available Not Available No t Available paliperidone ER 9 mg tablet,extended release 24 hr active Not Available Not Availabl e Not Available Vitals Date Recorded Respiratory rate Oxygen saturation Oxygen saturation in Arterial blood by Pulse oximetry Heart rate Body temperature Oxygen saturation Oxygen saturation in Arterial blood by Pulse oximetry Body temperature Respiratory rate Heart rate Systolic blood pressure Diastolic blood pressure Systolic blood pressure Diastolic blood pressure Provider Name and Address Organization Details Last Updated DateTime 3 16 /min 98 % 98 % 86 /min 98.1 [degF] 98 % 98 % 98.1 [degF] 16 /min 86 /min 177 mm[Hg] 84 mm[Hg] 177 mm[Hg] 84 mm[Hg] Not Available [facility] - production 3 20:54:58 Social History None recorded. Functional Status None recorded. Mental Status None recorded. Family History Nothing Reported. Medical History No medical history recorded. Past Encounters Encounter ID Performer Location Encounter Start Date Encounter Closed Date Diagnosis/Indication Diagnosis SNOMED-CT Code Diagnosis ICD10 Code Diagnosis Note [id number] Vincent Khalil MD Main - [facility] [address] [place] [phone] 08/30/2022 20:39:39 09/05/2022 19:32:49 Infection of sebaceous cyst [id number] L72.3 Health Concerns Section Related Observation LastModified by Organization Detai ls LastModified Time None Recorded Concern Status LastModified by Organization Details LastModified Time None Recorded Advance Directives Directive None Recorded Payers Encounter Date Sequence Insurance Name Policy Number Policy Mendoza Covered Member ID Mendoza Member ID Guarantor Name 08/30/2022 1 [facility] - DOS PRIOR TO 2022 - DUAL ELIGIBLE (MEDICARE REPLACEMENT/ADV ANTAGE - HMO) Hiram Moody [id number] Hiram Moody Notes Date Note Type Note Provider Name and Address Organization Details Recorded Time 08/30/2022 text/html HPI: 57 y.o. c/o a lump on his L scapular region that he first noticed as a tenderness starting last Th or Fri. It is approx the size of a quarter and does not seem to have grown in size since onset. He denies any obvious scab or fluid drainage. The center of the lump appears whitish with a red ring around it. He denies any feverish/ chills. Mbr denies being outdoors for any prolonged period recently, or noticing any insects crawling on him. Raised area is slightly painful, but tolerable. He is concerned it may be infected. Mbr agreed to medic eval for further advisement. NKDA per mbr. PMhx includes BLE edema, mild cognitive impairment, schizophrenia, BPH, hernia, other amnesia , IBS, hoarding, obesity. .................. .................. .................. .................. .................. .................. .................. ............... CRC Nursing Assessment: Comments: CRC RN did not require any additional information to process this visit. .................. .................. .................. .................. .................. .................. .................. ............... Lot Attendant Note: 57 y/o male called for a visit for a red bump on his back. The white center with a red ring 2 inch around the center stiff to the touch started last only pain is when resting up against something negative fevers negative G.I. symptoms negative nausea vomiting no other symptoms. No other complaints. [facility] contacted ordered 500 mg keflex PO to be given during visit and called in a prescription. Patient advised to call PCP to have cyst drained LOR supportive care discussed with patient and want to call 911. .................. .................. .................. .................. .................. .................. .................. ............... Disposition: Gerald Khalil MD [address] [facility],[address], [place], [address], [employer] Charge - [employer]NY JACKMAN 08/30/2022 21:07:14
--- OUTSIDE RECORDS SUMMARY | 2024-10-30 07:34 | XMS_ITS | Clinical Summary ---
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 Active paliperidone (INVEGA) 9 mg 24 hr tablet 1 Active lisinopriL (PRINIVIL,ZESTR IL) 20 mg tablet Take 1 tablet (20 mg total) by mouth 1 (one) time each day. 1 Active tamsulosin (FLOMAX) 0.4 mg 24 hr capsule Take 0.4 mg by mouth daily. Take 30 mins after same meal every day. Active cyanocobalamin (VITAMIN B-12) 100 mcg tablet Take 0.5 tablets (50 mcg total) by mouth 1 (one) time each day. Active cholecalciferol (VITAMIN D-3) 5,000 Units tablet Take 1 tablet (5,000 Units total) by mouth 1 (one) time each day. Active coenzyme Q-10 100 mg capsule Take 1 capsule (100 mg total) by mouth 1 (one) time each day. 90 capsule 3 5 Active coenzyme Q-10 100 mg capsule TAKE (1) CAPSULE BY MOUTH EVERY DAY 4 10/28/19 25 Discontinu ed(Reorder ) coenzyme Q-10 100 mg capsule Take 1 capsule (100 mg total) by mouth 1 (one) time each day. 90 capsule 3 5 10/30/19 25 Discontinu ed(Reorder ) Active Problems Problem Noted Date Diagnosed Date Morbid obesity with body mas s index (BMI) of 45.0 to 49.9 in adult 05/14/2024 BPH (benign prostatic hyperplasia) 04/10/2018 HTN (hypertension) 04/10/2018 Hyperlipidemia 04/10/2018 Schizophrenia 04/10/2018 Vitamin D deficiency 04/10/2018 Chronic constipation 02/04/2018 Anemia 06/27/2017 Elevated parathyroid hormone 06/27/2017 Back pain, chronic 01/30/2017 Urinary incontinence 09/29/2016 Encounters Date Type Department Care Team Description 10/29/2024 Telephone Internal Medicine - [address] [place] [address] Bryan Sanabria MD from Last 3 Months Immunizations Name Administration Dates Next Due Influenza Quadravalent, MDCK , 0.5ml, preservative free (Flucelvax) 6mo and older 08/23/2023,05/22/2022 Influenza trivalent, MDCK, 0 .5mL, preservative free (Flucelvax) 6mo and older 06/23/2024 Tdap Tetanus diptheria acell ular pertussis (Boostrix; Adacel) 7yo and older 07/09/2015 Medical History Medical History Date Comments Hypertension DX:Hypertension Social History Tobacco Use Types Packs/Day Years Used Date Smoking Tobacco: Never Assessed Sex and Gender Information Value Date Recorded Sex Assigned at Not on file Legal Sex Male 2:13 AM EST Gender Identity Not on file Sexual Orientation Not on file Obstetrics History Last Filed Vital Signs Vital Sign Reading Time Taken Comments Blood Pressure 132/74 06/23/2024 11:42 AM EST Pulse 74 06/23/2024 11:42 AM EST Temperature 37 ??C (98.6 ??F) 06/23/2024 11:42 AM EST Respiratory Rate - - Oxygen Saturation 98% 06/23/2024 11:42 AM EST Inhaled Oxygen Concentration - - Weight 150 kg (330 lb) 06/23/2024 11:42 AM EST Height 182.9 cm (6') 03/22/2023 8:18 AM EDT Body Mass Index 44.76 03/22/2023 8:18 AM EDT Plan of Treatment Upcoming Encounters Date Type Department Care Team (Late st Contact Info) Description 12/22/2024 8:15 AM EDT Office Visit Internal Medicine - [place] [address] [facility] [address] [place] [address] Bryan Sanabria MD [address] [facility] [place] [address] [place] [address] Health Maintenance Due Date Last Done Comments Hepatitis B Vaccines (1 of 3 - 19+ 3-dose series) 1984 Pneumococcal Vaccine: 50+ Years (1 of 2 - PCV) 1984 Pneumococcal Vaccine: Pediatrics (0 to 5 Years) and At-Risk Patients (6 to 64 Years) (1 of 2 - PCV) 1984 Zoster Vaccines (1 of 2) 2015 Depression Screening 07/22/2022 HIV Screening 07/22/2022 Hepatitis C Screening 07/22/2022 Medicare Annual Wellness Visit 07/22/2022 Social Influencers of Health Screening 07/22/2022 COVID-19 Vaccine ( season) 2024 08/24/2021, 02/01/2021, 01/04/2021 Hypertension/CHF/CAD Annual BMP Blood Test 06/09/2025 06/09/2024, 09/12/2023 DTaP,Tdap,and Td Vaccines (2 - Td or Tdap) 07/09/2025 07/09/2015 Colorectal Cancer Screening: Colonoscopy 01/29/2028 01/28/2018 Cholesterol Screening (Lipid Panel) 06/09/2029 06/09/2024, 09/12/2023 RSV Immunization Patients 60+ Years Old (1 - 1-dose 75+ series) 2040 Influenza Vaccine Completed 06/23/2024, , 05/22/2022, Additional history exists HIB Vaccines Aged Out No longer eligi ble based on patient's age to complete this topic HPV Vaccines Aged Out No longer eligi ble based on patient's age to complete this topic Hepatitis A Vaccines Aged Out No long er eligible based on patient's age to complete this topic IPV Vaccines Aged Out No longer eligi ble based on patient's age to complete this topic MMR Vaccines Aged Out No longer eligi ble based on patient's age to complete this topic Meningococcal ACWY Vaccine Aged Out N o longer eligible based on patient's age to complete this topic Meningococcal B Vacine Aged Out No lo nger eligible based on patient's age to complete this topic RSV Immunization Patients Under 20 months Aged Out No longer eligible based on patient's age to complete this topic Varicella Vaccines Aged Out No longer eligible based on patient's age to complete this topic Procedures Procedure Name Priority Date/Time Associated Diagnosis Comments ANNUAL BMP BLOOD TEST Routine 09/12/2023 LIPID PANEL Routine 09/12/2023 COLONOSCOPY Routine 01/28/2018 from Last 3 Months or Most Recently Relevant to Health Maintenance Results * Annual BMP Blood Test (09/12/2023) Annual BMP Blood Test abstracted [facility] Provider HEALTH MAINTENANCE Final Result * Lipid panel (09/12/2023) LDL/HDL Ratio 4 0 - 4 Triglycerides 110 0 - 150 mg/dL Cholesterol 164 0 - 200 mg/dL HDL 45 >=40 mg/dL LDL Cholesterol 97 0 - 100 mg/dL Blood Venous blood specimen / Unknown [facility] Provider LAB BLOOD ORDERABLES Anita l Result * Colonoscopy (01/28/2018) Colonoscopy no interpretation , abstracted Anatomical Region Laterality Modality Other Historical Provider HEALTH MAINTENANCE Final Result from Last 3 Months or Most Recently Relevant to Health Maintenance Insurance [employer] MEDICARE Member Subscriber Plan / Payer (Ef fective 2019-Present) Name:Hiram Moody Relation to Subscriber:Self Name:Hiram Moody Payer ID:[id number] Group ID:[id number] Type:Not on file Address: [facility] [address] [address] Care Teams Ammunition Storage Superintendent Relationship Specialty Start Date End Date Bryan Sanabria MD PCP - General Internal Medicine 01/14/19
--- NOTE | 2024-10-30 07:43 | A.OFFVIS_ITS ---
Intake Visit Reasons: 6M follow up- r/s Intake Note: Patient presents today for follow up on: BPH Urology Med: Tamsulosin, Vesicare Antibiotic Allergy: None Blood Thinner:None Todays PVR: Shuttle Route Vehicle Operator Required: No Accompanied by: Self / Same As Patient Allergies haloperidol [Haldol] Allergy (Unknown, Verified 10/30/24 08:08) n/a tricyclides Allergy (Unknown, Uncoded 10/30/24 08:08) na Medication List - Last Reconciled 10/30/24 by DO Hernandez cholecalciferol (vitamin D3) 125 mcg PO DAILY coenzyme Q10 0 mg PO cyanocobalamin (vitamin B-12) 1,000 mcg PO DAILY lisinopril 20 mg PO DAILY metformin 1,000 mg PO DAILY solifenacin (Vesicare) 10 mg PO DAILY 90 days tamsulosin (Flomax) 0.4 mg PO DAILY 90 days HPI Comments Details: Hiram is a pleasant 59 year old male of Dr. Cabello. He has H obesity, diabetes, incontinence, hypertension, and thought disorder. He presents to the office today for follow-up of his lower urinary tract symptoms and hypogonadism. In discussion with the patient today he reports to be doing and feeling well. When asked he reports compliance with Flomax and VESIcare. He currently denies any bothersome urinary issues or concerns. He reports be happy with current voiding parameters. When asked he denies urinary urgency, urinary frequency, incontinence, nocturia, hematuria, dysuria, foul smelling urine, changes to urinary stream, flank pain, fever, and or chills. He is happy with his current voiding parameters. In review of patient's chart it appears PSAs are as follows: PSA 05/02 0.8, 09/03 0.7, 03/03 0.7, 03/04 0.5 In office urinalysis results reviewed with the patient today. PVR 51mls. He otherwise offers no other issues or concerns at this time. PREVIOUS OFFICE NOTE: Lower urinary tract symptoms Primary symptoms were urgency and nocturia Good response to combination Flomax and VESIcare 5 mg Continues to be effective PSA - 04/01 0.8, 09/03 0.9. 02/01 0.7 Hypogonadism Responded to weight loss Previous prescription for topical testosterone Testim Followed by Endocrinology [facility] Medical History Morbid obesity with BMI of 40.0-44.9, adult Diabetes mellitus Abdominal wall hernia Epidermal cyst Thought disorder Incontinence HTN (hypertension) Elevated blood pressure reading Social History Alcohol intake: never Patient Tobacco Use Status: Never used Tobacco Review of Systems Const All systems reviewed & are unremarkable except as noted in HPI and below Physical Exam Const General: cooperative, comfortable, no acute distress, well developed, alert and awake Nutritional Appearance: overweight Orientation/consciousness: oriented to person HEENT Head: Yes normal to inspection, Yes normocephalic and Yes atraumatic Ears: hearing grossly normal bilaterally Eyes General: appearance normal, both eyes and all related structures Neck Neck: Yes normal visual inspection and Yes trachea midline Chest Chest palpation & inspection: normal inspection of the chest Resp Effort & Inspection: normal respiratory effort and able to speak in complete sentences Cardio Rate: regular rate GI Inspection: Yes normal to inspection General: Yes no CVA tenderness Back/Spine/Pelvis Back: no CVA tenderness Skin General skin exam: no rashes or lesions noted Neuro General: oriented to person Extrem General: Yes normal to inspection Psych Appearance: grossly normal and well kempt Mental Status: other (vague) Speech and movement: Normal speech and movement present and Clear speech present Affect: normal affect Attitude: cooperative Insight: Fair insight present (Psych) Judgement: Fair judgement present (Psych) Office Procedures Post Void Residual Post Residual Void Post Void Residual (PVR): 51 [id number] Void Residual by ultrasound Results AMB Urinalysis, Automated UA Leukoctes 0 Anna/uL Last Edit by Philip Pelaez on 10/30/24 07:58 UA Nitrite Last Edit by Philip Pelaez on 10/30/24 07:58 UA Urobilinogen 0.2 mg/dL Last Edit by Philip Pelaez on 10/30/24 07:58 UA Protein 0 mg/dL Last Edit by Philip Pelaez on 10/30/24 07:58 UA pH 6.0 Last Edit by Philip Pelaez on 10/30/24 07:58 UA Blood 10 Galdino/uL Last Edit by Philip Pelaez on 10/30/24 07:58 UA Specific [place] 1.020 Last Edit by Philip Pelaez on 10/30/24 07:58 UA Ketone Last Edit by Philip Pelaez on 10/30/24 07:58 UA Bilirubin 0 mg/dL Last Edit by Philip Pelaez on 10/30/24 07:58 UA Glucose 100 mg/dL Last Edit by Philip Pelaez on 10/30/24 07:58 Results Reviewed Results Reviewed: Laboratory Last Values Urine pH (Auto) 6.0 10/30/24 07:55 Specific [place] (Auto) 1.020 10/30/24 07:55 Urine Protein (Auto) 0 mg/dL 10/30/24 07:55 Glucose (UA)(Auto) 100 mg/dL 10/30/24 07:55 Urine Blood (Auto) 10 [place]/uL 10/30/24 07:55 Urine Bilirubin (Auto) 0 mg/dL 10/30/24 07:55 Urine Urobilinogen (Auto) 0.2 mg/dL 10/30/24 07:55 Leukocyte Esterase (Auto) 0 Anna/uL 10/30/24 07:55 Assessment & Plan Assessment & Plan (1) BPH with obstruction/lower urinary tract symptoms: Code(s): N40.1 - Benign prostatic hyperplasia with lower urinary tract symptoms; N13.8 - Other obstructive and reflux uropathy Category: Medical (2) Hypogonadism male: Code(s): E29.1 - Testicular hypofunction Category: Medical Plan In office urinalysis results reviewed with the patient today; as noted above. PVR 52 mL. When asked patient currently denies any bothersome urinary issues or concerns. He reports be happy with current voiding parameters. Continue VESIcare and Flomax as prescribed. Will obtain PSA. Follow-up in 6 months with PSA and PVR; or sooner with any issues, concerns, and or questions. Orders: Orders Prostate Specific Antigen Today N13.8 - Other obstructive and reflux uropathy, N40.1 - Benign prostatic hyperplasia with lower urinary tract symptoms AMB Urinalysis Automated Today Z13.9 - Encounter for screening, unspecified AMB Post Void Residual by ultrasound Today N13.8 - Other obstructive and reflux uropathy, N40.1 - Benign prostatic hyperplasia with lower urinary tract symptoms Patient Instructions: The patient had an opportunity to ask questions regarding the treatment plan. All questions were answered. Physical exam, labs, and imaging were discussed and reviewed in detail. As well as risks, benefits, and discussion of treatment choices. No major barriers to understanding were identified. The patient expressed understanding and agreement with the above treatment plan. The patient was made aware they should contact our office by phone for worsening of their current condition, the appearance of new symptoms, or with any questions or concerns. Compliance is encouraged with any medications and follow up testing that is ordered. It is a privilege to be allowed the opportunity to participate in? your urological care.? Again, if you have any questions or concerns If you have any questions or concerns please do not hesitate to contact me. The office is [phone]. This note is constructed using voice recognition software. While every effort has been made to ensure accuracy adoption services manager errors may have been included. Yours sincerely, DO Hernandez Coding Level of Care Code Est Pt Level 3 (19350) Complex EM visit Add On G2211 Diagnoses BPH with obstruction/lower urinary tract symptoms N40.1; N13.8 Hypogonadism male E29.1 CPT Codes Post Residual Void - PVR CPT Code: 77816-Urcu Void Residual by ultrasound ([id number])
== END 2024-10-30 08:03 | disposition home or self-care (01) ==
LOC: HO.HUSH 07:33
PROVIDERS: PCP Internal Medicine; Visit Provider Nurse Practitioner Family
DX: N40.1 Benign prostatic hyperplasia with lower urinary tract symptoms (principal); N13.8 Other obstructive and reflux uropathy; E29.1 Testicular hypofunction; Z13.9 Encounter for screening, unspecified
CPT/HCPCS: 99213; G2211

== ENCOUNTER → 2024-10-30 07:32 | Outpatient (BNVA) | payer OTHER, SELFPAY | PROVIDERS: PCP Internal Medicine; Visit Provider Nurse Practitioner Family | DX: N40.1 Benign prostatic hyperplasia with lower urinary tract symptoms (principal); N13.8 Other obstructive and reflux uropathy; E29.1 Testicular hypofunction | CPT/HCPCS: 51798; 81003; 99212 ==

== ENCOUNTER 2024-11-18 14:42 | Outpatient (AMB) | payer OTHER, SELFPAY ==
[2024-11-18 14:51] VITALS: BP 142/90; PULSE 88; RESP 16; TEMP 36.8; O2SAT 97; BMI 44.5
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
--- OUTSIDE RECORDS SUMMARY | 2024-11-18 17:48 | XMS_ITS | Data Portability ---
Author Organization [facility] Address [address] [place] [id number] Care Team Providers Care Braille Coder Name Role Phone [facility] Referring Provider Assessment Encounter Date Assessment Date Assessment LastModified [...] 2022 023 [facility] [place], [address], 3 20:45:13 Keflex 500 mg capsule 2022 023 dcorrigan [address] [facility] [place], [address], 3 21:06:51 Patient TargetsNo targets recorded. Patient [...] [id number] Vincent Khalil MD Main - [facility] [address] [place] [phone] 08/30/2022 20:39:39 09/05/2022 19:32:49 Infection of sebaceous cyst [id number] L72.3 Health Concerns Section Related Observation LastModified by Organization Detai ls LastModified Time None Recorded Concern Status LastModified by Organization Details LastModified Time None Recorded Advance Directives Directive None Recorded Payers Encounter Date Sequence Insurance Name Policy Number Policy Mendoza Covered Member ID Mendoza Member ID Guarantor Name 08/30/2022 1 [facility] - DOS PRIOR TO 2022 - DUAL ELIGIBLE (MEDICARE REPLACEMENT/ADV ANTAGE - HMO) Hiram Moody [id number] Hiram Moody Notes Date Note Type Note [...] .................. .................. .................. .................. .................. .................. ............... Patient Observer Note: 57 y/o male called for a visit for a red bump on his back. The white center with a red ring 2 inch around the center stiff to the touch started last only pain is when resting up against something negative fevers negative G.I. symptoms negative nausea vomiting no other symptoms. No other complaints. [facility] contacted ordered 500 mg keflex PO to be given during visit and called in a prescription. Patient advised to call PCP to have cyst drained LOR supportive care discussed with patient and want to call 911. .................. .................. .................. .................. .................. .................. .................. ............... Disposition: Gerald Khalil MD [address] [facility],[address], [place], [address], [employer] - SkysheetSUNNY JACKMAN 08/30/2022 21:07:14
--- OUTSIDE RECORDS SUMMARY | 2024-11-18 17:48 | XMS_ITS | Clinical Summary ---
Author Organization [address] [facility] Address [address] [place] [address] Phone Care Team Providers Care Tightening Machine Operator Name Role Phone Bryan Sanabria MD Primary Care Provider [phone] Allergies Active Allergy Reactions Criticality Noted Date [...] 3 5 10/30/19 25 Discontinu ed(Reorder ) coenzyme Q-10 100 mg capsule Take 1 capsule (100 mg total) by mouth 1 (one) time each day. 90 capsule 3 5 10/31/19 25 Discontinu ed(Reorder ) Active Problems Problem Noted Date Diagnosed Date Morbid obesity with body mas s index (BMI) of 45.0 to 49.9 in adult 05/14/2024 BPH (benign prostatic hyperplasia) 04/10/2018 HTN (hypertension) 04/10/2018 Hyperlipidemia 04/10/2018 Schizophrenia 04/10/2018 Vitamin D deficiency 04/10/2018 Chronic constipation 02/04/2018 Anemia 06/27/2017 Elevated parathyroid hormone 06/27/2017 Back pain, chronic 01/30/2017 Urinary incontinence 09/29/2016 Immunizations Name Administration Dates Next Due Influenza [...] AM EDT Office Visit Internal Medicine - [place] [address] [facility] [address] [place] [address] Bryan Sanabria MD [address] [facility] [address] [place], [place] [id number] Health Maintenance Due Date Last Done Comments [...] (Lipid Panel) 06/09/2029 06/09/2024, 09/12/2023 RSV Immunization Adult Patients (1 - 1-dose 75+ series) 2040 Influenza [...] age to complete this topic Meningococcal B Vaccine Aged Out No l onger eligible based on patient's age to complete [...] Test (09/12/2023) Annual BMP Blood Test abstracted [facility] Provider HEALTH MAINTENANCE Final Result * Lipid panel (09/12/2023) Pathologist [facility] LDL/HDL Ratio 4 0 - 4 Triglycerides 110 0 - 150 mg/dL Cholesterol 164 0 - 200 mg/dL HDL 45 >=40 mg/dL LDL Cholesterol 97 0 - 100 mg/dL Blood Venous blood specimen / Unknown [facility] Provider LAB BLOOD ORDERABLES Anita l Result * Colonoscopy (01/28/2018) Pathologist [facility] Colonoscopy no interpretation , abstracted Anatomical Region Laterality Modality Other [facility] Provider HEALTH MAINTENANCE Final Result from Last 3 Months or Most Recently Relevant to Health Maintenance Insurance [employer] MEDICARE Member Subscriber Plan / Payer (Ef fective 2019-Present) Name:Hiram Moody Relation to Subscriber:Self Name:Hiram Moody Payer ID:[id number] Group ID:[id number] Type:Not on file Address: [facility] [address] [address] Care Teams Tightening Machine Operator Relationship Specialty Start Date End Date Bryan Sanabria MD PCP - General Internal Medicine 01/14/19
--- OUTSIDE RECORDS SUMMARY | 2024-11-18 17:48 | XMS_ITS | Clinical Summary ---
Author Organization [facility] Address [address] [place] [id number] Care Team Providers Care Filing Or Registry Clerk Name Role Phone Bryan Sanabria MD Primary [...] age to complete this topic Care Teams Filing Or Registry Clerk Relationship Specialty Start Date End Date Bryan Sanabria MD PCP - General Internal Medicine 05/24/22
== END 2024-11-18 15:55 | disposition home or self-care (01) ==
LOC: HO.HMCSH 14:42
PROVIDERS: PCP Internal Medicine; Visit Provider Internal Medicine
DX: M54.2 Cervicalgia (principal)

== ENCOUNTER → 2024-11-18 14:42 | Outpatient (BNVA) | payer OTHER, SELFPAY | PROVIDERS: PCP Internal Medicine; Visit Provider Internal Medicine | DX: M54.2 Cervicalgia (principal); V89.2XXA Person injured in unspecified motor-vehicle accident, traffic, initial encounter | CPT/HCPCS: 96127; 99212 ==

== ENCOUNTER 2024-11-25 10:12 | Outpatient (AMB) | payer OTHER, SELFPAY ==
[2024-11-25 10:21] VITALS: BP 152/82; PULSE 92; RESP 18; TEMP 36.4; O2SAT 96; BMI 44.3
--- NOTE | 2024-11-25 10:21 | MHC.PC.OV ---
Vital Signs 11/25/24 10:21 Height 6 ft 1 in Weight 336 lb BMI 44.3 BP 152/82 H Respiration 18 Pulse 92 Pulse Source Pulse Oximeter Temp 97.5 F Temp Source Temporal Artery Scan Pulse Oximetry (%) 96 Oxygen Delivery Method Room Air Intake Visit Reasons: follow up Intake Note: Returns for a follow up visit. Patient returns for a follow up visit. Did not get the blood work done, which was ordered in August. Lives independantly, needs help with administering of meds. Water/Wastewater Project Manager Required: No Accompanied by: Self / Same As Patient Allergies haloperidol [Haldol] Allergy (Unknown, Verified 11/25/24 10:21) n/a tricyclides Allergy (Unknown, Uncoded 11/25/24 10:21) na Tobacco use date assessed: 11/25/24 Dental Screening Dental Screen Date: 11/18/24 Did you have a dental visit in the last 12 months?: Yes Did you have a dental problem in the last 6 months where you did not have access to dental care?: No Was dental information given to patient?: Patient has dentist [facility] Medical History Morbid obesity with BMI of 40.0-44.9, adult Diabetes mellitus Abdominal wall hernia Epidermal cyst Thought disorder Incontinence HTN (hypertension) Elevated blood pressure reading Surgical History History of colonoscopy (~01/28/18) Family History Father No problems noted. Mother No problems noted. 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 1. Little interest or pleasure in doing things: not at all 2. Feeling down, depressed, or hopeless: not at all 3. Trouble falling or staying asleep, or sleeping too much: not at all 4. Feeling tired or having little energy: not at all 5. Poor appetite or overeating: not at all 6. Feeling bad about yourself - or that you are a failure or have let yourself or your family down: not at all 7. Trouble concentrating on things, such as reading the newspaper or watching television: not at all 8. Moving or speaking so slowly that other people could have noticed. Or the opposite - being so fidgety or restless that you have been moving around a lot more than usual: not at all 9. Thoughts that you would be better off or of hurting yourself in some way: not at all Total score: 0 Depression Screening Interpretation: Negative Depression Screening Done: Yes Source: Developed by Drs. Geovani Yi, Cara Simpson, Jamil Diamond and colleagues, with an educational yohan from [employer] Thrive Questionnaire Date Thrive assessed: 11/18/24 I am a: Patient What is your living situation today?: I have a steady place to live Within the past 12 months, did the food you bought not last and you didn't have the money to get more?: Never true Within the past 12 months, did you worry whether your food would run out before you got money to buy more?: Never true Do you have trouble paying for medicines?: No Do you have trouble getting transportation to medical appointments?: No Do you have trouble paying your heating and electricity bill?: No Do you have trouble taking care of your child, family member or friend?: No Do you have trouble with day-to-day activities such as bathing, preparing meals, shopping, managing finances, etc.?: No Are you currently unemployed and looking for a job?: No Are you interested in more education?: No Please select the resources that you would like help with: None THRIVE Score: 0 AUDIT C Alcohol Use Questionnaire (AUDIT-C) 1. How often do you have a drink containing alcohol?: Never 3. How often do you have six or more drinks on one occasion?: Never Total Score: 0 ISSA-7 AMB Questionnaire ISSA-7 Date ISSA - 7 assessed: 11/18/24 Feeling nervous, anxious, or on edge: 0 = Not at all Not being able to stop or control worryin = Not at all Worrying too much about different things: 0 = Not at all Trouble relaxin = Not at all Being so restless that it is hard to sit still: 0 = Not at all Becoming easily annoyed or irritable: 0 = Not at all Feeling afraid as if something awful might happen: 0 = Not at all Total ISSA-7 score (0-4 normal; 5-9 mild; 10-14 moderate; 15-21 severe): 0 Source: Developed by Drs. Geovani Yi, Cara Simpson, Jamil Diamond and colleagues, with an educational yohan from [employer]). Physical exam (Primary Care) Vital Signs: Last Vital Signs Temp 97.5 F 11/25/24 10:21 Pulse 92 11/25/24 10:21 Resp 18 11/25/24 10:21 BP 152/82 H 11/25/24 10:21 Pulse Ox 96 11/25/24 10:21 Oxygen Delivery Method Room Air 11/25/24 10:21 Care Plan Goal for BP management: Elevated BP noted. Encouraged to check BP at home and bring the readings BMI result Body Mass Index 44.3 BMI Assessment/Plan discussion: High (One pound per week weight loss suggested.) BMI High, discussed plan: lifestyle, weight reduction and dietary Tobacco/Smoking Status: Tobacco use Status Tobacco use date assessed 11/25/24 11/25/24 10:25 Patient Tobacco Use Status Never used Tobacco 11/25/24 10:25 PHQ-9: PHQ-9 Score PHQ-9: Total score 0 11/25/24 10:32 Depression Screening Interpretation: Negative Thrive Assessment: Date of Thrive Assessment Date Thrive assessed 11/18/24 11/25/24 10:25 Const General: cooperative and healthy appearing Nutritional Appearance: well nourished Orientation/consciousness: patient oriented x3 Limitations: no limitations HENMT Head: Yes normal to inspection Eyes General: appearance normal, both eyes and all related structures Neck Neck: Yes normal visual inspection Chest Chest palpation & inspection: normal palpation of entire chest wall Resp Effort & Inspection: normal respiratory effort Neuro General: patient oriented x3 Coding Level of Care Code Est Pt Level 3 (11260) Complex EM visit Add On G2211 Diagnoses Diabetes mellitus E11.9 Assessment & Plan Assessment & Plan (1) Diabetes mellitus: Code(s): E11.9 - Type 2 diabetes mellitus without complications Category: Medical Plan: Encouraged patient to get blood work done. Continue current medications.
--- OUTSIDE RECORDS SUMMARY | 2024-11-25 12:06 | XMS_ITS | Clinical Summary ---
Author Organization [facility] Address [address] [place] [address] Care Team Providers Care Briar Wood Sorter Name Role Phone Bryan Sanabria MD Primary [...] age to complete this topic Care Teams Briar Wood Sorter Relationship Specialty Start Date End Date Bryan Sanabria MD PCP - General Internal Medicine 05/24/22
--- OUTSIDE RECORDS SUMMARY | 2024-11-25 12:06 | XMS_ITS | Data Portability ---
Author Organization [facility] Address [address] [place] [id number] Care Team Providers Care Dust Sampler Name Role Phone [facility] Referring Provider [phone] Assessment Encounter Date Assessment Date Assessment LastModified [...] 2022 023 [facility] [place], [address], 3 20:45:13 Keflex 500 mg capsule 2022 023 dcorrigan [facility] [place], [address], 3 21:06:51 Patient TargetsNo targets recorded. Patient [...] Vincent Khalil MD Main - [facility] [address] [place] [phone] 08/30/2022 20:39:39 09/05/2022 19:32:49 Infection of sebaceous cyst [id number] L72.3 Health Concerns Section Related Observation LastModified by Organization Detai ls LastModified Time None Recorded Concern Status LastModified by Organization Details LastModified Time None Recorded Advance Directives Directive None Recorded Payers Encounter Date Sequence Insurance Name Policy Number Policy Mendoza Covered Member ID Mendoza Member ID Guarantor Name 08/30/2022 1 [facility] - DOS PRIOR TO 2022 - DUAL ELIGIBLE (MEDICARE REPLACEMENT/ADV ANTAGE - HMO) Hiram Moody [id number] Hiram Moody Notes Date Note Type Note [...] .................. .................. .................. .................. .................. .................. ............... Still Photographer Note: 57 y/o male called for a visit for a red bump on his back. The white center with a red ring 2 inch around the center stiff to the touch started last only pain is when resting up against something negative fevers negative G.I. symptoms negative nausea vomiting no other symptoms. No other complaints. [facility] contacted ordered 500 mg keflex PO to be given during visit and called in a prescription. Patient advised to call PCP to have cyst drained LOR supportive care discussed with patient and want to call 911. .................. .................. .................. .................. .................. .................. .................. ............... Disposition: Gerald Khalil MD [address] [facility],[address], [place], [address], [employer] - BABADUSUNNY JACKMAN 08/30/2022 21:07:14
--- OUTSIDE RECORDS SUMMARY | 2024-11-25 12:06 | XMS_ITS | Clinical Summary ---
Author Organization 175 [facility] Address [address] [place] [address] Phone Care Team Providers Care Note Teller Name Role Phone Bryan Sanabria MD Primary Care Provider [phone] Allergies Active Allergy Reactions Criticality Noted Date [...] each day. 90 capsule 3 5 10/30/19 Discontinu ed(Reorder ) coenzyme Q-10 100 mg capsule Take 1 capsule (100 mg total) by mouth 1 (one) time each day. 90 capsule 3 5 10/31/19 25 Discontinu ed(Reorder ) Active Problems Problem Noted Date Diagnosed Date Morbid obesity with body mas s index (BMI) of 45.0 to 49.9 in adult ([facility]24, [facility] V28) 05/14/2024 BPH (benign prostatic hyperplasia) 04/10/2018 HTN (hypertension) 04/10/2018 Hyperlipidemia 04/10/2018 Schizophrenia ([facility], [facility] V28) 018 Vitamin D deficiency 04/10/2018 Chronic constipation 02/04/2018 [...] AM EDT Office Visit Internal Medicine - [place] [address] [facility] [address] [place] [id number] Bryan Sanabria MD 175 [facility] [address] [place] [address] Health Maintenance Due Date Last Done Comments Diabetes: Annual Foot Exam 1975 Diabetes: Annual Retina Eye Exam 1975 Hepatitis B Vaccines (1 of 3 - [...] Vaccine ( season) 2024 08/24/2021, 02/01/2021, 01/04/2021 Diabetes: Annual Urine Albumin-Creatinine Ratio (uACR) 11/21/2024 Diabetes: Blood Sugar Control Test (HGBA1C) 05/23/2025 11/21/2024, 06/09/2024, 09/12/2023 DTaP,Tdap,and Td Vaccines (2 - Td or Tdap) 07/09/2025 07/09/2015 Diabetes: Annual GFR (Glomerular Filtration Rate) 11/21/2025 11/21/2024, 06/09/2024, 09/12/2023 Hypertension/CHF/CAD Annual BMP Blood Test 11/21/2025 11/21/2024, 06/09/2024, 09/12/2023 Colorectal Cancer Screening: Colonoscopy 01/29/2028 01/28/2018 Cholesterol Screening (Lipid Panel) 11/21/2029 11/21/2024, 06/09/2024, 09/12/2023 RSV Immunization Adult Patients (1 [...] Procedure Name Priority Date/Time Associated Diagnosis Comments CBC WITH AUTO DIFFERENTIAL Routine 11/21/2024 12:58 PM EDT Primary hypertension Morbid obesity with body mass index (BMI) of 45.0 to 49.9 in adult ([facility]/HCC V24, [facility] V28) Pure hypercholesterolem ia Controlled type 2 diabetes mellitus without complication, without long-term current use of insulin ([facility] V24, [facility] V28) CBC AND DIFFERENTIAL Routine 11/21/2024 12:58 PM EDT Primary hypertension Morbid obesity with body mass index (BMI) of 45.0 to 49.9 in adult ([facility]/HCC V24, [facility] V28) Pure hypercholesterolem ia Controlled type 2 diabetes mellitus without complication, without long-term current use of insulin ([facility] V24, [facility] V28) COMPREHENSIVE METABOLIC PANEL Routine 11/21/2024 12:58 PM EDT Primary hypertension Morbid obesity with body mass index (BMI) of 45.0 to 49.9 in adult ([facility]/HCC V24, [facility] V28) Pure hypercholesterolem ia Controlled type 2 diabetes mellitus without complication, without long-term current use of insulin ([facility] V24, [facility] V28) HEMOGLOBIN A1C Routine 11/21/2024 12:58 PM EDT Primary hypertension Morbid obesity with body mass index (BMI) of 45.0 to 49.9 in adult ([facility] V24, [facility] V28) Pure hypercholesterolem ia Controlled type 2 diabetes mellitus without complication, without long-term current use of insulin ([facility] V24, [facility] V28) LIPID PANEL WITH REFLEX TO DIRECT LDL Routine 11/21/2024 12:58 PM EDT Primary hypertension Morbid obesity with body mass index (BMI) of 45.0 to 49.9 in adult ([facility] V24, [facility] V28) Pure hypercholesterolem ia Controlled type 2 diabetes mellitus without complication, without long-term current use of insulin ([facility] V24, [facility] V28) THYROID STIMULATING HORMONE Routine 11/21/2024 12:58 PM EDT Primary hypertension Morbid obesity with body mass index (BMI) of 45.0 to 49.9 in adult ([facility] V24, [facility] V28) Pure hypercholesterolem ia Controlled type 2 diabetes mellitus without complication, without long-term current use of insulin ([facility] V24, [facility] V28) HM COLONOSCOPY Routine 01/28/2018 from Last 3 Months or Most Recently Relevant to Health Maintenance Results * (ABNORMAL) Lipid panel with reflex to direct LDL (11/21/2024 12:58 PM EDT) Cholesterol 175 0 - 200 mg/dL LAB CHEMISTRY METHOD 11/21/2024 4:07 PM EDT [facility] Triglycerides 131 0 - 150 mg/dL LAB CHEMISTRY METHOD 11/21/2024 4:07 PM EDT [facility] HDL 42 >=40 mg/dL LAB CHEMISTRY METHOD 11/21/2024 4:07 PM EDT [facility] LDL Calculated 107(H) 0 - 100 mg/dL LAB CHEMISTRY METHOD 11/21/2024 4:07 PM EDT [facility] VLDL Cholesterol Abbe 26.2 mg/dL LAB CHEMISTRY METHOD 11/21/2024 4:07 PM EDT [facility] Non HDL Chol. (LDL+VLDL) 133 <145 mg/dL LAB CHEMISTRY METHOD 11/21/2024 4:07 PM EDT [facility] Chol/HDL Ratio 4.2 0.0 - 4.4 LAB CHEMISTRY METHOD 11/21/2024 4:07 PM EDT [facility] Blood Venous blood specimen / Unknown Venipuncture / Unknown 11/21/2024 12:58 PM EDT 11/21/2024 3:16 PM EDT us Bryan Sanabria MD LAB BLOOD ORDERABLES Final Resul t [facility] [address] [place] [address], [place] [phone] * (ABNORMAL) CBC auto differential (11/21/2024 12:58 PM EDT) WBC 7.6 4.8 - 10.8 K/mcL LAB HEMETOLOGY METHOD 11/21/2024 3:30 PM EDT [facility] RBC 4.60 4.50 - 5.50 M/mcL LAB HEMETOLOGY METHOD 11/21/2024 3:30 PM EDT [facility] Hemoglobin 13.7 13.5 - 17.5 g/dL LAB HEMETOLOGY METHOD 11/21/2024 3:30 PM EDT [facility] Hematocrit 42.8 42.0 - 54.0 % LAB HEMETOLOGY METHOD 11/21/2024 3:30 PM EDT [facility] MCV 92.4 79.0 - 98.0 FL LAB HEMETOLOGY METHOD 11/21/2024 3:30 PM EDT [facility] MCH 29.6 27.0 - 32.0 pcg LAB HEMETOLOGY METHOD 11/21/2024 3:30 PM EDT [facility] MCHC 32.0 32.0 - 37.0 g/dL LAB HEMETOLOGY METHOD 11/21/2024 3:30 PM EDT [facility] RDW 13.5 11.0 - 15.0 % LAB HEMETOLOGY METHOD 11/21/2024 3:30 PM EDT [facility] Platelets 259 130 - 400 K/mcL LAB HEMETOLOGY METHOD 11/21/2024 3:30 PM EDT [facility] MPV 10.5 7.0 - 11.0 FL LAB [facility] NR[facility] 0.0 <1.0 % LAB HEMETOLOGY METHOD 11/21/2024 3:30 PM EDT [facility] NRBC Absolute 0.00 <0.10 K/mcL LAB HEMETOLOGY METHOD 11/21/2024 3:30 PM EDT [facility] Neutrophils Relative 69.7 % LAB [facility]EMETOLOGY [facility] Lymphocytes Relative 22.3 % LAB HEMETOLOGY METHOD 11/21/2024 3:30 PM EDT [facility] Monocytes Relative 6.4 % LAB HEMETOLOGY METHOD 11/21/2024 3:30 PM EDT [facility] Eosinophils Relative 0.7 % LAB HEMETOLOGY METHOD 11/21/2024 3:30 PM EDT [facility] Basophils Relative 0.4 % LAB HEMETOLOGY METHOD 11/21/2024 3:30 PM EDT [facility] Immature Granulocytes Relative 0.5 % LAB HEMETOLOGY METHOD 11/21/2024 3:30 PM EDT [facility] Neutrophils Absolute 5.32 1.50 - 7.00 K/mcL LAB HEMETOLOGY METHOD 11/21/2024 3:30 PM EDT [facility] Lymphocytes Absolute 1.70 1.00 - 5.00 K/mcL LAB HEMETOLOGY METHOD 11/21/2024 3:30 PM EDT [facility] Monocytes Absolute 0.49 0.20 - 1.00 K/mcL LAB HEMETOLOGY METHOD 11/21/2024 3:30 PM EDT [facility] Eosinophils Absolute 0.05 0.00 - 0.50 K/mcL LAB HEMETOLOGY METHOD 11/21/2024 3:30 PM EDT [facility] Basophils Absolute 0.03 0.00 - 0.20 K/mcL LAB HEMETOLOGY METHOD 11/21/2024 3:30 PM EDT [facility] Immature Granulocytes Absolute 0.04(H) 0.00 - 0.03 K/mcL LAB HEMETOLOGY METHOD 11/21/2024 3:30 PM EDT [facility] Blood Venous blood specimen / Unknown Venipuncture / Unknown 11/21/2024 12:58 PM EDT 11/21/2024 3:15 PM EDT us Bryan Sanabria MD LAB BLOOD ORDERABLES Final Resul t [facility] [address] [place] [address], * Thyroid stimulating hormone (11/21/2024 12:58 PM EDT) TSH 1.73 0.40 - 4.00 mcIU/mL LAB CHEMISTRY METHOD 11/21/2024 4:38 PM EDT [facility] Blood Venous blood specimen / Unknown Venipuncture / Unknown 11/21/2024 12:58 PM EDT 11/21/2024 3:16 PM EDT us Bryan Sanabria MD LAB BLOOD ORDERABLES Final Resul t Performing Organization Address [facility]/ZIP Co de Phone Number [facility] [address] [place] [address], [place] [phone] * (ABNORMAL) Hemoglobin A1c (11/21/2024 12:58 PM EDT) Hemoglobin A1C 8.1(H) <6.5 % LAB CHEMISTRY METHOD 11/21/2024 8:40 PM EDT [facility] Mean Bld Glu Estim. 186 mg/dL LAB CHEMISTRY METHOD 11/21/2024 8:40 PM EDT [facility] Blood Venous blood specimen / Unknown Venipuncture / Unknown 11/21/2024 12:58 PM EDT 11/21/2024 3:15 PM EDT us Bryan Sanabria MD LAB BLOOD ORDERABLES Final Resul t Performing Organization Address [facility]/ZIP Co de Phone Number [facility] [address] [place] [address], [place] [phone] * (ABNORMAL) Comprehensive metabolic panel (11/21/2024 12:58 PM EDT) Pathologist [facility] Sodium 139 133 - 145 mmol/L LAB CHEMISTRY METHOD 11/21/2024 4:07 PM EDT [facility] Potassium 4.2 3.5 - 5.5 mmol/L LAB CHEMISTRY METHOD 11/21/2024 4:07 PM EDT [facility] Chloride 104 96 - 110 mmol/L LAB CHEMISTRY METHOD 11/21/2024 4:07 PM EDT [facility] CO2 30 21 - 32 mmol/L LAB CHEMISTRY METHOD 11/21/2024 4:07 PM EDT [facility] Anion Gap 5 3 - 11 LAB CHEMISTRY METHOD 11/21/2024 4:07 PM [facility] Glucose 119(H) 70 - 100 mg/dL LAB CHEMISTRY METHOD 11/21/2024 4:07 PM [facility] BUN 10 5 - 25 mg/dL LAB CHEMISTRY METHOD 11/21/2024 4:07 PM [facility] Creatinine 0.70 0.70 - 1.30 mg/dL LAB CHEMISTRY METHOD 11/21/2024 4:07 PM [facility] eGFR 106 >=60 mL/min/1. 73m2 LAB CHEMISTRY METHOD 11/21/2024 4:07 PM [facility] Comment:Calculation based on the??Chronic Kidney Disease Epidemiology Collaboration (CKD-EPI) equation refit??without adjustment for race. BUN/Creatinine Ratio 14.3 LAB CHEMISTRY METHOD 11/21/2024 4:07 PM [facility] Calcium 9.2 8.5 - 10.5 mg/dL LAB CHEMISTRY METHOD 11/21/2024 4:07 PM [facility] AST (SGOT) 15 10 - 42 unit/L LAB CHEMISTRY METHOD 11/21/2024 4:07 PM [facility] ALT (SGPT) 29 10 - 60 unit/L LAB CHEMISTRY METHOD 11/21/2024 4:07 PM [facility] Alkaline Phosphatase 114 42 - 121 unit/L LAB CHEMISTRY METHOD 11/21/2024 4:07 PM [facility] Total Protein 6.9 6.0 - 8.0 g/dL LAB CHEMISTRY METHOD 11/21/2024 4:07 PM [facility] Albumin 3.5 3.2 - 5.0 g/dL LAB CHEMISTRY METHOD 11/21/2024 4:07 PM [facility] Total Bilirubin 0.4 0.0 - 1.4 mg/dL LAB CHEMISTRY METHOD 11/21/2024 4:07 PM [facility] Blood Venous blood specimen / Unknown Venipuncture / Unknown 11/21/2024 12:58 PM EDT 11/21/2024 3:16 PM EDT Bryan Sanabria MD LAB BLOOD ORDERABLES Final Resul t [facility] [address] [place] [address], * Colonoscopy (01/28/2018) Colonoscopy no interpretation , abstracted Anatomical Region Laterality Modality Other us Historical Provider HEALTH MAINTENANCE Final Result from Last 3 Months or Most Recently Relevant to Health Maintenance Insurance [employer] Member Subscriber Plan / Payer (Ef fective 2019-Present) Name:Hiram Moody Relation to Subscriber:Self Name:Hiram Moody Payer ID:[id number] Group ID:[id number] Type:Not on file Address: [place] [address] [address] [id number] Care Teams Note Teller Relationship Specialty Start Date End Date Bryan Sanabria MD [address] [address] PCP - General Internal Medicine 11/21/24
== END 2024-11-25 11:12 | disposition home or self-care (01) ==
LOC: HO.HMCSH 10:12
PROVIDERS: PCP Internal Medicine; Visit Provider Internal Medicine
DX: E11.9 Type 2 diabetes mellitus without complications (principal)

== ENCOUNTER → 2024-11-25 10:12 | Outpatient (BNVA) | payer OTHER, SELFPAY | PROVIDERS: PCP Internal Medicine; Visit Provider Internal Medicine | DX: E11.9 Type 2 diabetes mellitus without complications (principal) | CPT/HCPCS: 96127; 99212 ==

== ENCOUNTER 2025-06-22 09:26 | Outpatient (AMB) | payer OTHER, SELFPAY ==
[2025-06-22 09:26] VITALS: BP 156/73; PULSE 77; RESP 16; TEMP 36.4; O2SAT 97; BMI 44.1
--- NOTE | 2025-06-22 09:26 | MHC.PC.OV ---
Vital Signs 06/22/25 09:26 Height 6 ft 1 in Weight 334 lb BMI 44.1 BP 156/73 H Blood Pressure Location Lt brachial Position Sitting Respiration 16 Pulse 77 Pulse Source Pulse Oximeter Temp 97.5 F Temp Source Temporal Artery Scan Pulse Oximetry (%) 97 Oxygen Delivery Method Room Air Intake Visit Reasons: follow up Wellfield Technician Required: No Accompanied by: Self / Same As Patient Allergies haloperidol (Haldol) Allergy (Unknown, Verified 06/22/25 09:) n/a tricyclides Allergy (Unknown, Uncoded 06/22/25 09:27) na Tobacco use date assessed: 11/25/24 Dental Screening Dental Screen Date: 11/18/24 [facility] Medical History Morbid obesity with BMI of 40.0-44.9, adult Diabetes mellitus Abdominal wall hernia Epidermal cyst Thought disorder Incontinence HTN (hypertension) Elevated blood pressure reading Surgical History (Reviewed 06/22/25 @ 09: by KOTA Acosta) History of colonoscopy (~01/28/18) Family History Father No problems noted. Mother No problems noted. 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 1. Little interest or pleasure in doing things: not at all 2. Feeling down, depressed, or hopeless: not at all 3. Trouble falling or staying asleep, or sleeping too much: not at all 4. Feeling tired or having little energy: not at all 5. Poor appetite or overeating: not at all 6. Feeling bad about yourself - or that you are a failure or have let yourself or your family down: not at all 7. Trouble concentrating on things, such as reading the newspaper or watching television: not at all 8. Moving or speaking so slowly that other people could have noticed. Or the opposite - being so fidgety or restless that you have been moving around a lot more than usual: not at all 9. Thoughts that you would be better off or of hurting yourself in some way: not at all Total score: 0 Depression Screening Interpretation: Negative Depression Screening Done: Yes Source: Developed by Drs. Geovani Yi, Cara Simpson, Jamil Diamond and colleagues, with an educational yohan from [employer]. Thrive Questionnaire Date Thrive assessed: 11/18/24 I am a: Patient What is your living situation today?: I have a steady place to live Within the past 12 months, did the food you bought not last and you didn't have the money to get more?: Never true Within the past 12 months, did you worry whether your food would run out before you got money to buy more?: Never true Do you have trouble paying for medicines?: No Do you have trouble getting transportation to medical appointments?: No Do you have trouble paying your heating and electricity bill?: No Do you have trouble taking care of your child, family member or friend?: No Do you have trouble with day-to-day activities such as bathing, preparing meals, shopping, managing finances, etc.?: No Are you currently unemployed and looking for a job?: No Are you interested in more education?: No Please select the resources that you would like help with: None THRIVE Score: 0 AUDIT C Alcohol Use Questionnaire (AUDIT-C) 1. How often do you have a drink containing alcohol?: Never 3. How often do you have six or more drinks on one occasion?: Never Total Score: 0 ISSA-7 AMB Questionnaire ISSA-7 Date ISSA - 7 assessed: 11/18/24 Feeling nervous, anxious, or on edge: 0 = Not at all Not being able to stop or control worryin = Not at all Worrying too much about different things: 0 = Not at all Trouble relaxin = Not at all Being so restless that it is hard to sit still: 0 = Not at all Becoming easily annoyed or irritable: 0 = Not at all Feeling afraid as if something awful might happen: 0 = Not at all Total ISSA-7 score (0-4 normal; 5-9 mild; 10-14 moderate; 15-21 severe): 0 Source: Developed by Drs. Geovani Yi, Cara Simpson, Jamil Diamond and colleagues, with an educational yohan from [employer]. Physical exam (Primary Care) Vital Signs: Last Vital Signs Temp 97.5 F 06/22/25 09:26 Pulse 77 06/22/25 09:26 Resp 16 06/22/25 09:26 BP 156/73 H 06/22/25 09:26 Pulse Ox 97 06/22/25 09:26 Oxygen Delivery Method Room Air 06/22/25 09:26 BMI result Body Mass Index 44.1 Tobacco/Smoking Status: Tobacco use Status Tobacco use date assessed 11/25/24 06/22/25 09:32 Patient Tobacco Use Status Never used Tobacco 06/22/25 09:32 PHQ-9: PHQ-9 Score PHQ-9: Total score 0 06/22/25 09:32 Depression Screening Interpretation: Negative Thrive Assessment: Date of Thrive Assessment Date Thrive assessed 11/18/24 06/22/25 09:32 Coding Level of Care Code Est Pt Level 4 (80519) Complex EM visit Add On G2211 Diagnoses Thought disorder R41.89 Diabetes mellitus E11.9 Assessment & Plan Assessment & Plan (1) Thought disorder: Code(s): R41.89 - Other symptoms and signs involving cognitive functions and awareness Category: Medical Plan: Lives in an appt. [facility] provides him with daily medications. Patient drives on his own. Someone else manages his money. (2) Diabetes mellitus: Code(s): E11.9 - Type 2 diabetes mellitus without complications Category: Medical Plan: History of Present Illness - The patient is a 59-year-old male presenting for follow-up to discuss his blood sugar levels. - He reports taking his medications, which include Lisinopril, Metformin, and Januvia. - The patient's daily medications, including for diabetes, are dispensed by a [facility]. - He also sees a psychiatrist who prescribes his mental health medications. - No recent blood work was available for review at this visit. Social History - Housing: The patient lives in an apartment. - Functional Status: He is independent with activities of daily living; he drives himself, does his own grocery shopping, and cooks for himself. - Medication Management: He receives his daily medications from a [facility] clinic. 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 Review of Systems Physical Exam General: Cooperative and healthy appearing Nutritional Appearance: Well nourished Orientation/consciousness: Patient oriented x3 Limitations: No limitations Head: Normal to inspection General: Appearance normal, both eyes and all related structures Neck: Normal visual inspection Chest: Normal palpation of entire chest wall Respiratory: N ormal respiratory effort Neurology: Patient oriented x3, drives independently, manages own finances Results - No recent lab results were available for review. Plan - The patient will be administered an influenza vaccine today. - The patient was instructed to go to the lab at [address] [place] [address] for blood work to monitor his blood sugar levels. - The patient will continue his current medications, including lisinopril, metformin, and Januvia. - The patient will follow up in six months. Discussion Notes I discussed with the patient the need to obtain blood work to monitor his blood sugars, as no recent labs were available. I provided him with the address for the lab. I also offered an influenza vaccine, which he agreed to receive today. We confirmed he is taking his medications for diabetes and other conditions. I advised a follow-up visit in six months. Patient Instructions - You will receive your flu shot today in the office. - Please go to the lab at [address] [place] [address] to get your blood work done. - Continue taking all of your medications as prescribed. - Please schedule a follow-up appointment to be seen in six months.
--- OUTSIDE RECORDS SUMMARY | 2025-06-22 10:25 | XMS_ITS | Data Portability ---
Author Organization [employer] [facility], In [employer] [facility] Address [address] [place] [phone] Care Team Providers Care Director Of Retention Name Role Phone [facility] Referring Provider [phone] Assessment Encounter Date Assessment Date Assessment LastModified [...] 2022 023 [facility] [place], [address], 3 20:45:13 Keflex 500 mg capsule 2022 023 [email or web address] [facility] [place], [address], 3 21:06:51 Patient TargetsNo targets recorded. Patient [...] Body temperature Respiratory rate Heart rate Systolic And Diastolic Systolic And Diastolic Provider Name and Address Organization Details Last Updated DateTime 3 16 /min 98 % 98 % 86 /min 98.1 [degF] 98 % 98 % 98.1 [degF] 16 /min 86 /min 177/84 mm[Hg] 177/84 mm[Hg] Not Available [facility] - production 3 20:54:58 Social History None recorded. Functional Status None recorded. Mental Status None recorded. Family History Nothing Reported. Medical History No medical history recorded. Past Encounters Encounter ID Performer Location Encounter Start Date Encounter Closed Date Diagnosis/Indication Diagnosis SNOMED-CT Code Diagnosis ICD10 Code Diagnosis IMO Codes Diagnosis Note [id number] Vincent Khalil MD Main - [facility] [address] [place] [phone] 08/30/2022 20:39:39 09/05/2022 19:32:49 Infection of sebaceous cyst 609556828 L72.3 Health Concerns Section Related Observation LastModified by Organization Detai ls LastModified Time None Recorded Concern Status LastModified by Organization Details LastModified Time None Recorded Advance Directives Directive None Recorded Payers Insurance Date Sequence Insurance Name Policy Number Policy Mendoza Covered Member ID Mendoza Member ID Guarantor Name 08/30/2022 1 [facility] - DOS PRIOR TO 2022 - DUAL ELIGIBLE (MEDICARE REPLACEMENT/ADV ANTAGE - HMO) Hiram Moody [id number] Hiram Moody Notes Date Note Type Note [...] .................. .................. .................. .................. .................. .................. ............... 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 The white center with a red ring 2 inch around the center stiff to the touch started last only pain is when resting up against something negative fevers negative G.I. symptoms negative nausea vomiting no other symptoms. No other complaints. [facility] contacted ordered 500 mg keflex PO to be given during visit and called in a prescription. Patient advised to call PCP to have cyst drained LOR supportive care discussed with patient and want to call 911. .................. .................. .................. .................. .................. .................. .................. ............... Disposition: Gerald Khalil MD [address] [facility], [place], [address], [employer] - Medication ReviewSUNNY JACKMAN 08/30/2022 21:07:14
== END 2025-06-22 09:59 | disposition home or self-care (01) ==
LOC: HO.HMCSH 09:27
PROVIDERS: PCP Internal Medicine; Visit Provider Internal Medicine
DX: R41.89 Other symptoms and signs involving cognitive functions and awareness (principal); E11.9 Type 2 diabetes mellitus without complications; Z23 Encounter for immunization

== ENCOUNTER → 2025-06-22 09:26 | Outpatient (BNVA) | payer OTHER, SELFPAY | PROVIDERS: PCP Internal Medicine; Visit Provider Internal Medicine | DX: Z23 Encounter for immunization (principal); R41.89 Other symptoms and signs involving cognitive functions and awareness; E11.9 Type 2 diabetes mellitus without complications | CPT/HCPCS: 90471; 90656; 96127; 99212 ==

== ENCOUNTER 2025-07-06 09:35 | Outpatient (REF) | payer OTHER, SELFPAY ==
--- OUTSIDE RECORDS SUMMARY | 2025-07-06 11:04 | XMS_ITS | Encounter Summary ---
Author Organization [facility] Address [address] [place] [address] Care Team Providers Care Legal Internship Name Role Phone Bryan Sanabria MD Primary Care Provider [phone] Encounter Details Date Type Department Care Team (Late st Contact Info) Description 06/30/2025 Results Follow-Up Internal Medicine [facility] [address] [phone] Bryan Sanabria MD [address] [id number] Social History Tobacco Use Types Packs/Day Years Used Date Smoking Tobacco: Never Assessed Sex and Gender Information Value Date Recorded Sex Assigned at Not on file Legal Sex Male 2:13 AM EST Gender Identity Not on file Sexual Orientation Not on file documented as of this encounter Plan of Treatment Upcoming Encounters Date Type Department Care Team (Late st Contact Info) Description 08/27/2025 11:00 AM EST Office Visit Endocrinology [facility] [address] [place] [address] Robin Gaspar MD [address] [place] [address] 11/23/2025 8:30 AM EDT Office Visit Internal Medicine - [place] [address] [phone] Bryan Sanabria MD [address] [address] documented as of this encounter Visit Diagnoses Not on filedocumented in this encounter Care Teams Legal Internship Relationship Specialty Start Date End Date Bryan Sanabria MD 175 [place] [address] PCP - General Internal Medicine 11/21/24 documented as of this encounter
--- OUTSIDE RECORDS SUMMARY | 2025-07-06 11:04 | XMS_ITS | Encounter Summary ---
Author Organization [facility] Address [address] [place] [address] Care Team Providers Care Hand Molder Meat Name Role Phone Bryan Sanabria MD Primary Care Provider [phone] Encounter Details Date Type Department Care Team (Late st Contact Info) Description 05/13/2025 Results Follow-Up Internal Medicine [facility] [address] [phone] Bryan Sanabria MD [address] [address] Social History Tobacco Use Types Packs/Day Years [...] 08/27/2025 11:00 AM EST Office Visit Endocrinology [facility] [address] [place] [address] Robin Gaspar MD [address] [place] [address] 11/23/2025 8:30 AM EDT Office Visit Internal Medicine - [place] [address] [phone] Bryan Sanabria MD [address] [address] documented as of this encounter Visit Diagnoses Not on filedocumented in this encounter Care Teams Hand Molder Meat Relationship Specialty Start Date End Date Bryan Sanabria MD 175 [place] [address] PCP - General Internal Medicine 11/21/24 documented as of this encounter
--- OUTSIDE RECORDS SUMMARY | 2025-07-06 11:04 | XMS_ITS | Clinical Summary ---
Author Organization 175 [facility] Address [address] [place] [address] Phone Care Team Providers Care Lath Tier Name Role Phone Bryan Sanabria MD Primary Care Provider [phone] Allergies Active Allergy Reactions Criticality Noted Date Comments Haloperidol Other 04/09/2018 FATIGUE Medications solifenacin (VESICARE) 10 mg tablet Take 5 [...] each day. 90 capsule 3 5 Active SITagliptin phosphate (JANUVIA) 100 mg tabletIndicatio ns:Type 2 diabetes mellitus without complication, without long-term current use of insulin (CMS/HCC V24, CMS/HCC V28) Take 1 tablet (100 mg total) by mouth 1 (one) time each day. 30 each 11 5 03/03/20 26 Active metFORMIN XR (GLUCOPHAGE-XR) 500 mg 24 hr tabletIndicatio ns:Type 2 diabetes mellitus without complication, without long-term current use of insulin ([facility] V24, [facility] V28) Do not crush, chew, or split.Take 4 tablets (2,000 mg total) by mouth 1 (one) time each day. Do not crush, chew, or split. 360 tablet 3 5 Active metFORMIN XR (GLUCOPHAGE-XR) 500 mg 24 hr tabletIndicatio ns:Type 2 diabetes mellitus without complication, without long-term current use of insulin ([facility] V24, [facility] V28) Take 4 tablets (2,000 mg total) by mouth 1 (one) time each day. Do not crush, chew, or split. 360 tablet 1 5 06/24/20 25 Discontinu ed(Reorder ) Active Problems Problem Noted Date Diagnosed Date Morbid obesity with body mas s index (BMI) of 45.0 to 49.9 in adult ([facility] V24, [facility] V28) 05/14/2024 BPH (benign prostatic hyperplasia) 04/10/2018 HTN (hypertension) 04/10/2018 Hyperlipidemia 04/10/2018 Schizophrenia ([facility] V24, [facility] V28) 018 Vitamin D deficiency 04/10/2018 Chronic constipation 02/04/2018 Anemia 06/27/2017 Elevated parathyroid hormone 06/27/2017 Back pain, chronic 01/30/2017 Urinary incontinence 09/29/2016 Encounters Date Type Department Care Team Description 06/30/2025 Results Follow-Up Internal Medicine - [address] [place] [phone] Bryan Sanabria MD 06/29/2025 9:45 AM EST Lab Draw Station - [address] [place] [address] [address] [place] [phone] Primary hypertension; Diabetes mellitus type 1.5, managed as type 2 ([facility] V24, [facility] V28); Hypercholesterolemia 06/25/2025 8:30 AM EST Office Visit Internal Medicine - [address] [place] [phone] Bryan Sanabria MD Primary hypertension (Primary Dx); Diabetes mellitus type 1.5, managed as type 2 ([facility] V24, [facility] V28); Hypercholesterolemia 05/27/2025 11:00 AM EDT Office Visit Endocrinology [address] [phone] Lisa Lopez MD Type 2 diabetes mellitus without complication, without long-term current use of insulin ([facility] V24, [facility] V28) (Primary Dx) 05/13/2025 Results Follow-Up Internal Medicine [address] [phone] Bryan Sanabria MD 05/08/2025 Telephone Internal Medicine - [address] [phone] Bryan Sanabria MD 05/05/[address] [phone] Lisa Lopez MD from Last 3 Months Immunizations Immunization Administration Dates Next Due Influenza Quadravalent, MDCK [...] Sign Reading Time Taken Comments Blood Pressure 138/80 06/25/2025 8:51 AM EST Pulse 73 06/25/2025 8:33 AM EST Temperature 36.4 C (97.6 F) 06/25/2025 8:32 AM EST Respiratory Rate 14 05/27/2025 10:44 AM EDT Oxygen Saturation 97% 06/25/2025 8:32 AM EST Inhaled Oxygen Concentration - - Weight 148 kg (325 lb 6.4 oz) 06/25/2025 8:32 AM EST Height 185.4 cm (6' 1 ) 06/25/2025 8:32 AM EST Body Mass Index 42.93 06/25/2025 8:32 AM EST Plan of Treatment Upcoming Encounters Date Type Department Care Team (Late st Contact Info) Description 08/27/2025 11:00 AM EST Office Visit Endocrinology - [place] [address] [place] [address] Robin Gaspar MD [address] [place] [address] 11/23/2025 8:30 AM EDT Office Visit Internal Medicine - [place] 175 [facility] [address] [place] [phone] Bryan Sanabria MD 175 [facility] [address] [place] [address] Health Maintenance Due Date Last Done Comments Pneumococcal Vaccine: 50+ Years (1 of 2 - PCV) 1984 RSV Immunization Adult Patients (1 - Risk 50-74 years 1-dose series) 2015 Zoster Vaccines (1 of 2) 2015 HIV Screening 07/22/2022 Hepatitis C Screening 07/22/2022 Medicare Annual Wellness Visit 07/22/2022 Social Influencers of Health Screening 07/22/2022 Depression Screening 08/13/2024 Diabetes: Annual Urine Albumin-Creatinine Ratio (uACR) 11/21/2024 COVID-19 Vaccine ( season) 2025 08/24/2021, 02/01/2021, 01/04/2021 DTaP,Tdap,and Td Vaccines (2 - Td or Tdap) 07/09/2025 07/09/2015 Diabetes: Annual Foot Exam 12/23/2025 12/23/2024 Diabetes: Blood Sugar Control Test (HGBA1C) 12/27/2025 06/29/2025, 05/13/2025, 02/19/2025, Additional history exists Diabetes: Annual Retina Eye Exam 12/31/2025 12/31/2024, 01/01/2024 Diabetes: Annual GFR (Glomerular Filtration Rate) 06/29/2026 06/29/2025, 05/13/2025, 02/19/2025, Additional history exists Hypertension/CHF/CAD Annual BMP Blood Test 06/29/2026 06/29/2025, 05/13/2025, 02/19/2025, Additional history exists Colorectal Cancer Screening: Colonoscopy 01/29/2028 01/28/2018 Cholesterol Screening (Lipid Panel) 06/29/2030 06/29/2025, 11/21/2024, 06/09/2024, Additional history exists Influenza Vaccine Completed 06/22/2025, , 08/23/2023, Additional history exists HIB Vaccines Aged Out No longer eligi ble based on patient's age to complete this topic HPV Vaccines Aged Out No longer eligi ble based on patient's age to complete this topic Hepatitis A Vaccines Aged Out No long er eligible based on patient's age to complete this topic Hepatitis B Vaccines Aged Out No long er eligible [...] Diagnosis Comments CBC WITH AUTO DIFFERENTIAL Routine 06/29/2025 9:44 AM EST Primary hypertension Diabetes mellitus type 1.5, managed as type 2 ([facility] V24, [facility] V28) Hypercholesterolem ia LIPID PANEL WITH REFLEX TO DIRECT LDL Routine 06/29/2025 9:44 AM EST Primary hypertension Diabetes mellitus type 1.5, managed as type 2 ([facility]/HCC V24, CMS/HCC V28) Hypercholesterolem ia COMPREHENSIVE METABOLIC PANEL Routine 06/29/2025 9:44 AM EST Primary hypertension Diabetes mellitus type 1.5, managed as type 2 (CMS/HCC V24, CMS/HCC V28) Hypercholesterolem ia CBC AND DIFFERENTIAL Routine 06/29/2025 9:44 AM EST Primary hypertension Diabetes mellitus type 1.5, managed as type 2 (CMS/HCC V24, CMS/HCC V28) Hypercholesterolem ia HEMOGLOBIN A1C Routine 06/29/2025 9:44 AM EST Primary hypertension Diabetes mellitus type 1.5, managed as type 2 (CMS/HCC V24, CMS/HCC V28) Hypercholesterolem ia THYROID STIMULATING HORMONE Routine 06/29/2025 9:44 AM EST Primary hypertension Diabetes mellitus type 1.5, managed as type 2 (CMS/HCC V24, CMS/HCC V28) Hypercholesterolem ia HEMOGLOBIN AND HEMATOCRIT Routine 05/13/2025 7:55 AM EDT Type 2 diabetes mellitus without complication, without long-term current use of insulin ([facility] V24, CMS/HCC V28) HEMOGLOBIN A1C Routine 05/13/2025 7:55 AM EDT Type 2 diabetes mellitus without complication, without long-term current use of insulin ([facility] V24, CMS/HCC V28) BUN Routine 05/13/2025 7:55 AM EDT Type 2 diabetes mellitus without complication, without long-term current use of insulin ([facility] V24, CMS/HCC V28) CREATININE, SERUM Routine 05/13/2025 7:5 5 AM EDT Type 2 diabetes mellitus without complication, without long-term current use of insulin ([facility] V24, CMS/HCC V28) HM COLONOSCOPY Routine 01/28/2018 from Last 3 Months or Most Recently Relevant to Health Maintenance Results * Lipid panel with reflex to direct LDL (06/29/2025 9:44 AM EST) Cholesterol 158 0 - 200 mg/dL LAB CHEMISTRY METHOD 06/29/2025 4:23 PM [facility] Triglycerides 113 0 - 150 mg/dL LAB CHEMISTRY METHOD 06/29/2025 4:23 PM [facility] HDL 41 >=40 mg/dL LAB CHEMISTRY METHOD 06/29/2025 4:23 PM [facility] LDL Calculated 94 0 - 100 mg/dL LAB CHEMISTRY METHOD 06/29/2025 4:23 PM [facility] Comment:Estimated LDL Calcul ated using equation: Total cholesterol - HDL cholesterol - (Triglycerides/5) VLDL Cholesterol Abbe 22.6 mg/dL LAB CHEMISTRY METHOD 06/29/2025 4:23 PM [facility] Non HDL Chol. (LDL+VLDL) 117 <145 mg/dL LAB CHEMISTRY METHOD 06/29/2025 4:23 PM [facility] Chol/HDL Ratio 3.9 0.0 - 4.4 LAB CHEMISTRY METHOD 06/29/2025 4:23 PM [facility] Blood Venous blood specimen / Unknown Venipuncture / Unknown 06/29/2025 9:44 AM EST 06/29/2025 9:44 AM EST Bryan Sanabria MD LAB BLOOD ORDERABLES Final Resul t [facility] [address] [place] [address], * (ABNORMAL) CBC auto differential (06/29/2025 9:44 AM EST) Pathologist [facility] WBC 7.1 4.8 - 10.8 K/[facility] LAB HEMETOLOGY METHOD 06/29/2025 10:15 AM [facility] RBC 4.50 4.50 - 5.50 M/[facility] LAB HEMETOLOGY METHOD 06/29/2025 10:15 AM [facility] Hemoglobin 13.4(L) 13.5 - 17.5 g/dL LAB HEMETOLOGY METHOD 06/29/2025 10:15 AM [facility] Hematocrit 41.6(L) 42.0 - 54.0 % LAB HEMETOLOGY METHOD 06/29/2025 10:15 AM [facility] MCV 91.8 79.0 - 98.0 FL LAB HEMETOLOGY METHOD 06/29/2025 10:15 AM [facility] MCH 29.6 27.0 - 32.0 pcg LAB HEMETOLOGY METHOD 06/29/2025 10:15 AM [facility] MCHC 32.2 32.0 - 37.0 g/dL LAB HEMETOLOGY METHOD 06/29/2025 10:15 AM [facility] RDW 13.9 11.0 - 15.0 % LAB HEMETOLOGY METHOD 06/29/2025 10:15 AM [facility] Platelets 267 130 - 400 K/mcL LAB HEMETOLOGY METHOD 06/29/2025 10:15 AM [facility] MPV 10.1 7.0 - 11.0 FL LAB HEMETOLOGY METHOD 06/29/2025 10:15 AM [facility] NRBC 0.0 <1.0 % LAB HEMETOLOGY METHOD 06/29/2025 10:15 AM [facility] NRBC Absolute 0.00 <0.10 K/mcL LAB HEMETOLOGY METHOD 06/29/2025 10:15 AM [facility] Neutrophils Relative 74.9 % LAB HEMETOLOGY METHOD 06/29/2025 10:15 AM [facility] Lymphocytes Relative 18.0 % LAB HEMETOLOGY METHOD 06/29/2025 10:15 AM [facility] Monocytes Relative 5.3 % LAB HEMETOLOGY METHOD 06/29/2025 10:15 AM EST [facility] Eosinophils Relative 0.8 % LAB HEMETOLOGY METHOD 06/29/2025 10:15 AM EST [facility] Basophils Relative 0.3 % LAB HEMETOLOGY METHOD 06/29/2025 10:15 AM [facility] Immature Granulocytes Relative 0.7 % LAB HEMETOLOGY METHOD 06/29/2025 10:15 AM EST [facility] Neutrophils Absolute 5.34 1.50 - 7.00 K/mcL LAB HEMETOLOGY METHOD 06/29/2025 10:15 AM EST [facility] Lymphocytes Absolute 1.28 1.00 - 5.00 K/mcL LAB HEMETOLOGY METHOD 06/29/2025 10:15 AM [facility] Monocytes Absolute 0.38 0.20 - 1.00 K/mcL LAB HEMETOLOGY METHOD 06/29/2025 10:15 AM EST [facility] Eosinophils Absolute 0.06 0.00 - 0.50 K/mcL LAB HEMETOLOGY METHOD 06/29/2025 10:15 AM EST [facility] Basophils Absolute 0.02 0.00 - 0.20 K/mcL LAB HEMETOLOGY METHOD 06/29/2025 10:15 AM EST [facility] Immature Granulocytes Absolute 0.05(H) 0.00 - 0.03 K/mcL LAB HEMETOLOGY METHOD 06/29/2025 10:15 AM [facility] Blood Venous blood specimen / Unknown Venipuncture / Unknown 06/29/2025 9:44 AM EST 06/29/2025 9:44 AM EST us Bryan Sanabria MD LAB BLOOD ORDERABLES Final Resul t [facility] [address] [place] [address], [place] [phone] * Thyroid stimulating hormone (06/29/2025 9:44 AM EST) [facility] TSH 1.14 0.40 - 4.00 mcIU/mL LAB CHEMISTRY METHOD 06/29/2025 6:28 PM EST [facility] Blood Venous blood specimen / Unknown Venipuncture / Unknown 06/29/2025 9:44 AM EST 06/29/2025 9:44 AM EST us Bryan Sanabria MD LAB BLOOD ORDERABLES Final Resul t Performing Organization Address City/[facility]/ZIP Co de Phone Number [facility] [address] [place] [address], [place] [phone] * (ABNORMAL) Hemoglobin A1c (06/29/2025 9:44 AM EST) Only the most recent of2 resultswithin the time period is included. [facility] Hemoglobin A1C 7.9(H) <6.5 % LAB CHEMISTRY METHOD 06/29/2025 11:29 AM EST [facility] Mean Bld Glu Estim. 180 mg/dL LAB CHEMISTRY METHOD 06/29/2025 11:29 AM EST [facility] Blood Venous blood specimen / Unknown Venipuncture / Unknown 06/29/2025 9:44 AM EST 06/29/2025 9:44 AM EST us Bryan Sanabria MD LAB BLOOD ORDERABLES Final Resul t [facility] [address] [place] [address], [place] [phone] * (ABNORMAL) Comprehensive metabolic panel (06/29/2025 9:44 AM EST) [facility] Sodium 139 133 - 145 mmol/L LAB CHEMISTRY METHOD 06/29/2025 4:23 PM EST [facility] Potassium 4.4 3.5 - 5.5 mmol/L LAB CHEMISTRY METHOD 06/29/2025 4:23 PM [facility] Chloride 105 96 - 110 mmol/L LAB CHEMISTRY METHOD 06/29/2025 4:23 PM [facility] CO2 30 21 - 32 mmol/L LAB CHEMISTRY METHOD 06/29/2025 4:23 PM [facility] Anion Gap 4 3 - 11 LAB CHEMISTRY METHOD 06/29/2025 4:23 PM [facility] Glucose 143(H) 70 - 100 mg/dL LAB CHEMISTRY METHOD 06/29/2025 4:23 PM [facility] BUN 14 5 - 25 mg/dL LAB CHEMISTRY METHOD 06/29/2025 4:23 PM [facility] Creatinine 0.86 0.70 - 1.30 mg/dL LAB CHEMISTRY METHOD 06/29/2025 4:23 PM [facility] eGFR 100 >=60 mL/min/1. 73m2 LAB CHEMISTRY METHOD 06/29/2025 4:23 PM [facility] Comment:Calculation based on the Chronic Kidney Disease Epidemiology Collaboration (CKD-EPI) equation refit without adjustment for race. BUN/Creatinine Ratio 16.3 LAB CHEMISTRY METHOD 06/29/2025 4:23 PM [facility] Calcium 8.7 8.5 - 10.5 mg/dL LAB CHEMISTRY METHOD 06/29/2025 4:23 PM [facility] AST (SGOT) 18 10 - 42 unit/L LAB CHEMISTRY METHOD 06/29/2025 4:23 PM [facility] ALT (SGPT) 44 10 - 60 unit/L LAB CHEMISTRY METHOD 06/29/2025 4:23 PM [facility] Alkaline Phosphatase 101 42 - 121 unit/L LAB CHEMISTRY METHOD 06/29/2025 4:23 PM [facility] Total Protein 6.4 6.0 - 8.0 g/dL LAB CHEMISTRY METHOD 06/29/2025 4:23 PM EST [facility] Albumin 3.5 3.2 - 5.0 g/dL LAB CHEMISTRY METHOD 06/29/2025 4:23 PM EST [facility] Total Bilirubin 0.3 0.0 - 1.4 mg/dL LAB CHEMISTRY METHOD 06/29/2025 4:23 PM EST [facility] Blood Venous blood specimen / Unknown Venipuncture / Unknown 06/29/2025 9:44 AM EST 06/29/2025 9:44 AM EST Bryan Sanabria MD LAB BLOOD ORDERABLES Final Resul t Performing Organization Address [facility]/ZIP Co de Phone Number [facility] [address] [place] [address], [place] [phone] * (ABNORMAL) Hemoglobin and hematocrit (05/13/2025 7:55 AM EDT) Hemoglobin 12.6(L) 13.5 - 17.5 g/dL LAB HEMETOLOGY METHOD 05/13/2025 9:10 AM EDT [facility] Hematocrit 39.4(L) 42.0 - 54.0 % LAB HEMETOLOGY METHOD 05/13/2025 9:10 AM EDT [facility] Blood Venous blood specimen / Unknown Venipuncture / Unknown 05/13/2025 7:55 AM EDT 05/13/2025 9:03 AM EDT Lisa Lopez MD LAB BLOOD ORDERABLES Final Resul t [facility] [address] [place] [address], [place] [phone] * Creatinine (05/13/2025 7:55 AM EDT) Creatinine 0.79 0.70 - 1.30 mg/dL LAB CHEMISTRY METHOD 05/13/2025 9:56 AM EDT [facility] eGFR 102 >=60 mL/min/1. 73m2 LAB CHEMISTRY METHOD 05/13/2025 9:56 AM EDT [facility] Comment:Calculation based on the Chronic Kidney Disease Epidemiology Collaboration (CKD-EPI) equation refit without adjustment for race. Blood Venous blood specimen / Unknown Venipuncture / Unknown 05/13/2025 7:55 AM EDT 05/13/2025 9:01 AM EDT Lisa Lopez MD LAB BLOOD ORDERABLES Final Resul t Performing Organization Address City/[facility]/ZIP Co de Phone Number [facility] [address] [place] [address], [place] [phone] * BUN (05/13/2025 7:55 AM EDT) BUN 12 5 - 25 mg/dL LAB CHEMISTRY METHOD 05/13/2025 9:56 AM EDT [facility] Blood Venous blood specimen / Unknown Venipuncture / Unknown 05/13/2025 7:55 AM EDT 05/13/2025 9:01 AM EDT Lisa Lopez MD LAB BLOOD ORDERABLES Final Resul t Performing Organization Address [facility]/ZIP Co de Phone Number [facility] [address] [place] [address], [place] [phone] * Hm Colonoscopy (01/28/2018) HM Colonoscopy no interpretation , abstracted Anatomical Region Laterality Modality Other Historical Provider HEALTH MAINTENANCE Final Result from Last 3 Months or Most Recently Relevant to Health Maintenance Insurance [facility] MEDIC[facility] Member Subscriber Plan / Payer (Ef fective 2019-Present) Name:NÉSTOR SANCHEZ Relation to Subscriber:Self Name:Néstor Sanchez Payer ID:[id number] Group ID:[id number] Type:Not on file Address: [place] [address] [address] [id number] Care Teams Lath Tier Relationship Specialty Start Date End Date Bryan Sanabria MD [address] [address] PCP - General Internal Medicine 11/21/24
--- OUTSIDE RECORDS SUMMARY | 2025-07-06 11:04 | XMS_ITS | Clinical Summary ---
Author Organization [facility] Address [address] [place] [id number] Care Team Providers Care Sap Consultant Name Role Phone Bryan Sanabria MD Primary [...] 78 10/18/2022 11:34 AM EST Temperature 36.9 C (98.5 F) 10/18/2022 11:34 AM EST Respiratory Rate - - Oxygen Saturation 99% 10/18/2022 11:34 AM EST Inhaled Oxygen Concentration - - Weight 147.9 kg (326 lb) 10/18/2022 11:34 AM EST Height 185.4 cm (6' 1 ) 10/18/2022 11:34 AM EST Body Mass Index 43.01 10/18/2022 11:34 AM EST Plan of Treatment Health Maintenance Due Date Last Done Comments Hepatitis C Screening 1965 COVID-19 Vaccine (#1) 1965 Depression Screening 1977 Preventative Health Evaluation 1983 Colon Cancer Screening (Colonoscopy) 2010 Shingrix-Zoster Vaccine (1 of 2) 2015 Influenza Vaccine (#1) 2025 2, 05/18/2021, 2020, Additional history exists DTap / Tdap / Td (2 - Td or Tdap) 07/09/2025 07/09/2015 RSV Adult > 60+ Yrs or (1 - 1-dose 75+ series) 2040 Hepatitis B Vaccines Aged Out No long er eligible based on patient's age to complete this topic Pneumococcal Vaccine Aged Out No long er eligible based on patient's age to complete this topic RSV Ped < 20 months Aged Out No longe r eligible based on patient's age to complete this topic Insurance Payer Benefit Plan / Group Subscriber ID Effective Dates Phone Address [facility] [id number] 2017-Pre sent [address] [place] [address] [place] [id number] 2007-Pre sent [employer] [address] [place] [address] Medicare [place] [id number] 2017-Pre sent [phone] [address] [place] [address] Medicaid [facility] [id number] 2022-P resent [phone] [address] [place] [address] Care Teams Sap Consultant Relationship Specialty Start Date End Date Bryan Sanabria MD PCP - General Internal Medicine 05/24/22
[2025-07-06 13:17] LABS: Hematocrit 42.6 % (42.0-52.0); Hemoglobin 13.5 g/dl (14.0-18.0); Mean Corpuscular HGB Conc 31.7 g/dl (31.0-36.0); Mean Corpuscular Hemoglobin 29.1 pg (27.0-33.0); Mean Corpuscular Volume 91.8 fL (80.0-98.0); NRBC Abs Auto 0.000 X10*3/uL (0.0-0.012); NRBC Pct Auto 0.0 /100WBC (0.0-0.2); Platelet Count 278 X10*3/uL (160-400); Red Blood Count 4.64 X10*6/uL (4.60-5.80); White Blood Count 6.7 X10*3/uL (4.8-10.8)
[2025-07-06 14:44] LABS: Prostate Specific Antigen 0.79 ng/mL (<0.05-4.0)
[2025-07-06 16:27] LABS: Thyroid Stimulating Hormone 1.13 uIU/mL (0.32-4.0)
[2025-07-06 16:35] LABS: Anion Gap 14 (12-20)
[2025-07-06 16:40] LABS: Alanine Aminotransferase 33 U/L (0-40); Albumin Level 4.1 g/dL (3.5-5.0); Alkaline Phosphatase 98 U/L (39-117); Aspartate Amino Transferase 27 U/L (5-37); Blood Urea Nitrogen 11 mg/dL (9-16); Calcium 9.6 mg/dL (8.4-10.2); Carbon Dioxide 26 mmol/L (22-29); Chloride 105 mmol/L (96-108); Cholesterol 165 mg/dL (<200); Estimated Glomerular Filt Rate > 60; HDL Cholesterol 40 mg/dL (>40); Potassium 4.4 mmol/L (3.3-5.1); Sodium 141 mmol/L (135-145); Total Protein 6.8 g/dL (6.5-8.0); Triglycerides 116 mg/dL (<150)
== END 2025-07-06 09:36 | disposition home or self-care (01) ==
LOC: HO.HMGCLDS 09:35
PROVIDERS: Nurse Practitioner Family; PCP Internal Medicine; Visit Provider Internal Medicine
DX: Z12.5 Encounter for screening for malignant neoplasm of prostate (principal); E11.9 Type 2 diabetes mellitus without complications; N40.1 Benign prostatic hyperplasia with lower urinary tract symptoms; N13.8 Other obstructive and reflux uropathy
CPT/HCPCS: 36415; 80048; 80061; 80076; 83036; 84153; 84443; 85027